=== PATIENT | female | born 1975 | race Caucasian/White ===

== ENCOUNTER → 2018-01-18 18:32 | Outpatient (CLI) | payer OTHER, SELFPAY ==
[2018-01-18 18:33] LABS: Mucous, Urine 0 SEEN /hpf (<or=2+); Squamous Epithelial Cells - UA 0 SEEN /hpf (5-10)
[2018-01-18 18:44] LABS: Color, Urine Yellow (Yellow); Glucose, Dipstick Normal (Normal); Ketone-Dipstick Negative (Negative); Leukocyte Esterase-Dipstick 500 /ul (Negative); Nitrite-Dipstick Negative (Negative); Occult Blood-Urine 250 /ul (Negative); Protein-Dipstick 30 mg/dl (Negative); Urine Bilirubin Dipstick Negative (Negative); Urine Clarity Cloudy (Clear); Urine Urobilinogen Normal (Normal); Urine pH 6.5 (5.0 - 8.0)
[2018-01-18 19:00] LABS: Bacteria RARE /hpf (None Seen); Red Blood Cells-Urine 5-10 SEEN /hpf (0-5); White Blood Cells >100 SEEN /hpf (0-5)
== END ==
PROVIDERS: Visit Provider Physician Assistant Surgical
DX: J02.9 Acute pharyngitis, unspecified (principal); R30.0 Dysuria
CPT/HCPCS: 81001; 87077; 87086; 87088; 87186

== ENCOUNTER → 2018-03-06 12:27 | Outpatient (CLI) | payer OTHER, SELFPAY ==
--- NOTE | 2018-03-06 12:29 | BI_ITS ---
MAMMOGRAPHY - BILATERAL SCREENING REASON FOR EXAM: Female, 42 years old. Routine annual screening examination. PERTINENT HISTORY: Non-contributory. TECHNIQUE: Digital bilateral breast rodrigo (3D mammographic acquisition) in the CC and MLO projections. 2-D mediolateral oblique (MLO) and craniocaudad (CC) views of both breasts were obtained. CAD: Full Field Digital Mammography with Computer Added Detection was performed. COMPARISON: Comparison is made with prior study dated February 15, 2017. FINDINGS: Breast Composition: The breasts are heterogeneously dense, which may obscure small masses. There are no dominant masses or suspicious calcifications. No other significant abnormalities are identified. There has been no significant change since the prior study. BI/SCREENING MAMM (CAD), BILAT IMPRESSION: Stable bilateral screening mammogram. Yearly follow-up mammogram recommended. (A) ASSESSMENT CATEGORY: BIRADS Category 1: Negative. A letter regarding these results will be sent to the patient by the facility within 30 days. Approximately 10% of breast cancers are not detected by mammography. A normal mammogram should not delay biopsy of a clinically suspicious abnormality. [id number] Electronically Signed: Gerson Kumar MD at 13:50 EDT Tel [phone], Service support ,
--- NOTE | 2018-03-06 12:29 | BI_ITS ---
MAMMOGRAPHY - BILATERAL SCREENING REASON FOR EXAM: Female, 42 years old. Routine annual screening examination. PERTINENT HISTORY: Non-contributory. TECHNIQUE: Digital bilateral breast renaldo (3D mammographic acquisition) in the CC and MLO projections. 2-D mediolateral oblique (MLO) and craniocaudad (CC) views of both breasts were obtained. CAD: Full Field Digital Mammography with Computer Added Detection was performed. COMPARISON: Comparison is made with prior study dated February 15, 2017. FINDINGS: Breast Composition: The breasts are heterogeneously dense, which may obscure small masses. There are no dominant masses or suspicious calcifications. No other significant abnormalities are identified. There has been no significant change since the prior study. BI/Bilat Brst Screen Renaldo Add-On IMPRESSION: Stable bilateral screening mammogram. Yearly follow-up mammogram recommended. (A) ASSESSMENT CATEGORY: BIRADS Category 1: Negative. A letter regarding these results will be sent to the patient by the facility within 30 days. Approximately 10% of breast cancers are not detected by mammography. A normal mammogram should not delay biopsy of a clinically suspicious abnormality. [id number] Electronically Signed: Gerson Kumar MD at 13:50 EDT Tel [phone], Service support ,
== END ==
PROVIDERS: Referring Provider Obstetrics & Gynecology; Visit Provider Obstetrics & Gynecology
DX: Z12.31 Encounter for screening mammogram for malignant neoplasm of breast (principal)
CPT/HCPCS: 77063; 77067

== ENCOUNTER → 2019-03-26 15:21 | Outpatient (CLI) | payer OTHER, SELFPAY ==
[2018-08-09 07:43] VITALS: BMI 31.3
[2019-03-12 15:31] VITALS: BMI 31.3
--- NOTE | 2019-03-26 15:23 | BI_ITS ---
MAMMOGRAPHY - BILATERAL SCREENING REASON FOR EXAM: Female, 44 years old. Routine annual screening examination. PERTINENT HISTORY: Non-contributory. TECHNIQUE: Digital bilateral breast zoey (3D mammographic acquisition) in the CC and MLO projections. 2-D mediolateral oblique (MLO) and craniocaudad (CC) views of both breasts were obtained. CAD: Full Field Digital Mammography with Computer Added Detection was performed. COMPARISON: Comparison is made with prior study dated March 06, 2018 and February 15, 2017. FINDINGS: Breast Composition: The breasts are heterogeneously dense, which may obscure small masses. There are no dominant masses or suspicious calcifications. No other significant abnormalities are identified. There has been no significant change since the prior study. BI/SCREEN MAMM (CAD) W/ZOEY BILAT IMPRESSION: Stable bilateral screening mammogram. Yearly follow-up mammogram recommended. (A) ASSESSMENT CATEGORY: BIRADS Category 1: Negative. A letter regarding these results will be sent to the patient by the facility within 30 days. Approximately 10% of breast cancers are not detected by mammography. A normal mammogram should not delay biopsy of a clinically suspicious abnormality. [id number] Electronically Signed: Gerson Kumar, at 8:06 EST , Service support ,
== END ==
PROVIDERS: Family Provider Family Medicine; PCP Family Medicine; Referring Provider Nurse Practitioner Women's Health; Visit Provider Nurse Practitioner Women's Health
DX: Z12.31 Encounter for screening mammogram for malignant neoplasm of breast (principal)
CPT/HCPCS: 77063; 77067

== ENCOUNTER → 2020-03-17 16:50 | Outpatient (CLI) | payer OTHER, SELFPAY ==
[2020-03-17 15:37] VITALS: BMI 40.5
[2020-03-23 08:56] LABS: HPV APTIMA, High Risk Negative (Negative)
== END ==
PROVIDERS: PCP Family Medicine; Visit Provider Nurse Practitioner Women's Health
DX: Z12.4 Encounter for screening for malignant neoplasm of cervix (principal)
CPT/HCPCS: 87624; 88175; G0145

== ENCOUNTER → 2020-04-21 07:07 | Outpatient (CLI) | payer OTHER, SELFPAY ==
[2020-03-26 06:31] VITALS: BMI 40.7
--- NOTE | 2020-04-21 07:07 | BI_ITS ---
MAMMOGRAPHY - BILATERAL SCREENING REASON FOR EXAM: Female, 45 years old. Routine annual screening examination. PERTINENT HISTORY: Non-contributory. TECHNIQUE: Digital bilateral breast zoey (3D mammographic acquisition) in the CC and MLO projections. 2-D mediolateral oblique (MLO) and craniocaudad (CC) views of both breasts were obtained. CAD: Full Field Digital Mammography with Computer Added Detection was performed. COMPARISON: Comparison is made with prior study dated 03/26/2019 and 03/06/2018. FINDINGS: Breast Composition: The breasts are heterogeneously dense, which may obscure small masses. There are no dominant masses or suspicious calcifications. Stable benign-appearing axillary lymph nodes No other significant abnormalities are identified. There has been no significant change since the prior study. BI/SCREEN MAMM (CAD) W/ZOEY BILAT IMPRESSION: Stable bilateral screening mammogram. Yearly follow-up mammogram recommended. (A) ASSESSMENT CATEGORY: BIRADS Category 2: Benign. A letter regarding these results will be sent to the patient by the facility within 30 days. Approximately 10% of breast cancers are not detected by mammography. A normal mammogram should not delay biopsy of a clinically suspicious abnormality. [id number] Electronically Signed: Gerson Kumar, at 8:15 EST , Service support ,
== END ==
PROVIDERS: PCP Family Medicine; Referring Provider Nurse Practitioner Women's Health; Visit Provider Nurse Practitioner Women's Health
DX: Z12.31 Encounter for screening mammogram for malignant neoplasm of breast (principal)
CPT/HCPCS: 77063; 77067

== ENCOUNTER 2020-07-01 13:38 | Outpatient (RCR) | payer OTHER, SELFPAY ==
[2020-03-26 06:31] VITALS: BMI 40.7
== END 2020-07-01 23:59 ==
LOC: IMMUN 13:38
PROVIDERS: PCP Family Medicine; Visit Provider Family Medicine
DX: Z23 Encounter for immunization (principal)
CPT/HCPCS: 0011A; 0012A

== ENCOUNTER → 2021-04-25 08:57 | Outpatient (CLI) | payer OTHER, SELFPAY ==
--- NOTE | 2021-04-25 08:59 | BI_ITS ---
MAMMOGRAPHY - BILATERAL SCREENING REASON FOR EXAM: Female, 46 years old. Routine annual screening examination. PERTINENT HISTORY: Non-contributory. TECHNIQUE: Digital bilateral breast zoey (3D mammographic acquisition) in the CC and MLO projections. 2-D mediolateral oblique (MLO) and craniocaudad (CC) views of both breasts were obtained. CAD: Full Field Digital Mammography with Computer Added Detection was performed. COMPARISON: Comparison is made with prior study 04/21/2020 and 03/26/2019. FINDINGS: Breast Composition: There are scattered areas of fibroglandular density. There are no dominant masses or suspicious calcifications. Breast asymmetry with more breast tissue is seen in the retroareolar region of the right breast as compared to the left side. There has been no change. No other significant abnormalities are identified. There has been no significant change since the prior study. BI/SCRN MAMM (CAD)W/ZOEY BILAT IMPRESSION: Stable bilateral screening mammogram. Yearly follow-up mammogram recommended. (A) ASSESSMENT CATEGORY: BIRADS Category 2: Benign. A letter regarding these results will be sent to the patient by the facility within 30 days. Approximately 10% of breast cancers are not detected by mammography. A normal mammogram should not delay biopsy of a clinically suspicious abnormality. [id number] Electronically Signed: Gerson Kumar MD at 10:13 EST , Service support ,
== END ==
PROVIDERS: PCP Family Medicine; Visit Provider Nurse Practitioner Women's Health
DX: Z12.31 Encounter for screening mammogram for malignant neoplasm of breast (principal)
CPT/HCPCS: 77063; 77067

== ENCOUNTER → 2022-04-27 | Outpatient (CLI) | payer OTHER, SELFPAY ==
--- NOTE | 2022-04-27 08:29 | BI_ITS ---
MAMMOGRAPHY - BILATERAL SCREENING REASON FOR EXAM: Female, 47 years old. Routine annual screening examination. PERTINENT HISTORY: Non-contributory. TECHNIQUE: Digital bilateral breast zoey (3D mammographic acquisition) in the CC and MLO projections. 2-D mediolateral oblique (MLO) and craniocaudad (CC) views of both breasts were obtained. CAD: Full Field Digital Mammography with Computer Added Detection was performed. COMPARISON: Comparison is made with prior examination dated 04/25/2021 and 04/21/2020. FINDINGS: Breast Composition: There are scattered areas of fibroglandular density. There are no dominant masses or suspicious calcifications. Stable breast asymmetry were more breast tissue is seen in the retroareolar region of the right breast as compared to the left side. Stable small benign-appearing nodules in the upper outer aspect of the left breast most likely representing small lymph nodes. No other significant abnormalities are identified. There has been no significant change since the prior study. BI/SCRN MAMM (CAD)W/ZOEY BILAT IMPRESSION: Stable bilateral screening mammogram. Yearly follow-up mammogram recommended. (A) ASSESSMENT CATEGORY: BIRADS Category 2: Benign. A letter regarding these results will be sent to the patient by the facility within 30 days. Approximately 10% of breast cancers are not detected by mammography. A normal mammogram should not delay biopsy of a clinically suspicious abnormality. [id number] Electronically Signed: Gerson Kumar MD at 9:51 EST ,
== END | disposition home or self-care (01) ==
LOC: OPBI 08:28
PROVIDERS: PCP Family Medicine; Referring Provider Nurse Practitioner Women's Health; Visit Provider Nurse Practitioner Women's Health
DX: Z12.31 Encounter for screening mammogram for malignant neoplasm of breast (principal)
CPT/HCPCS: 77063; 77067

== ENCOUNTER → 2023-05-02 | Outpatient (CLI) | payer OTHER, SELFPAY ==
--- NOTE | 2023-05-02 07:53 | BI_ITS ---
MAMMOGRAPHY - BILATERAL SCREENING 3-D TOMOSYNTHESIS REASON FOR EXAM: Female, 48 years old. Routine annual screening examination. PERTINENT HISTORY: No significant family history. TECHNIQUE: 2-D mammograms and 3-D Tomosynthesis of the breast (s) were performed. CAD was performed. COMPARISON: April 27, 2022, April 25, 2021 FINDINGS: Stable predominantly fatty replaced breasts. Normal lymph nodes and scattered benign calcifications, unchanged. No dominant masses, suspicious microcalcifications, asymmetries, skin thickening or nipple retraction. BI/SCRN MAMM (CAD)W/ZOEY BILAT IMPRESSION: No interval change and no mammographic signs of malignancy. Routine yearly mammogram recommended. ASSESSMENT CATEGORY: BIRADS Category 2: Benign. A letter regarding these results will be sent to the patient by the facility within 30 days. FOLLOW UP RECOMMENDATION: Yearly follow up mammogram recommended. (A) Approximately 10% of breast cancers are not detected by mammography. A normal mammogram should not delay biopsy of a clinically suspicious abnormality. Electronically Signed: Miguel Aragon MD at 13:35 EST ,
== END | disposition home or self-care (01) ==
LOC: OPBI 07:52
PROVIDERS: PCP Family Medicine; Referring Provider Nurse Practitioner Women's Health; Visit Provider Nurse Practitioner Women's Health
DX: Z12.31 Encounter for screening mammogram for malignant neoplasm of breast (principal)
CPT/HCPCS: 77063; 77067

== ENCOUNTER → 2023-05-25 | Outpatient (CLI) | payer OTHER, SELFPAY ==
--- NOTE | 2023-05-25 09:13 | NM_ITS ---
CLINICAL: 48-year-old female with history of radiographic vertebral abnormalities. WHOLE BODY 99m Tc MDP RADIONUCLIDE BONE SCINTIGRAPHY COMPARISON: Plain film radiograph report lumbar spine 05/17/2023 FINDINGS: Following the intravenous administration of 26.8 mCi of 99m Tc MDP, whole body bone images reveal: 1. There is facilitated radiopharmaceutical concentration defined in the patellofemoral compartments both knees, the lateral femoral and medial tibial compartment of the right knee, the midfoot bilaterally, the fifth lumbar vertebra posteriorly on the left and right, the acromioclavicular compartments of both shoulders. 2. The remaining skeletal structures are scintigraphically unremarkable with normal-appearing renal images and urinary bladder activity identified. NM/Bone Scan Whole Body IMPRESSION: 1. The increase in tracer distribution defined in the bilateral shoulders, the fifth lumbar vertebra, knees bilaterally, the right-left midfoot is commensurate with degenerative arthrosis. 2. There is no definitive scintigraphic evidence of skeletal metastatic disease. Electronically Signed: Bhupinder Zamarripa DO at 15:25 EST ,
== END | disposition home or self-care (01) ==
LOC: NM 09:08
PROVIDERS: PCP Family Medicine; Referring Provider Orthopaedic Surgery Orthopaedic Surgery of the Spine; Visit Provider Orthopaedic Surgery Orthopaedic Surgery of the Spine
DX: M89.9 Disorder of bone, unspecified (principal)
CPT/HCPCS: 78306; A9503

== ENCOUNTER → 2023-06-01 | Outpatient (CLI) | payer OTHER, SELFPAY ==
--- OUTSIDE RECORDS SUMMARY | 2023-06-01 06:30 | XMS RPT_ITS | CCD ---
Author Name Unknown Address [address] [place] [address] Organization [facility] Care Team Providers Care Pathology Laboratory Director Name Role Phone Kiley Hernandez Unavailable Unavailable Deanna Fuentes MD Unavailable Lavon RAZA, Jenny Curran Unavailable Gaetano Alford Unavailable Unavailable Gaetano Alford Unavailable Unavailable MEENU MCMANUS Unavailable Unavailable KarLauro plummer Unavailable Unavailable Lauro Lakhani Unavailable Unavailable Deanna Fuentes MD Unavailable [facility] Sanders Primary Care Provider Unavailable Primary Care Provider Unavailabl nathan Lakhnai Sanders Primary Care Provider Kar Sanders Primary Care Provider Get Mejia MD Primary Care Provider Octavio Rodrigues DO Unavailable JESIKA, IFTEKHAR Attending Unavailable JESIKA, IFTEKHAR Referring Unavailable ELIAS, GET Primary Care Unavailable JESIKA, IFTEKHAR Admitting Unavailable JESIKA, IFTEKHAR Attending Unavailable JESIKA, IFTEKHAR Referring Unavailable ELIAS, GET Primary Care Unavailable JESIKA, IFTEKHAR Attending Unavailable ELIAS, GET Primary Care Unavailable Allergies Allergy Classification Reported Allergen(s) Allergy Type Date of Onset Reaction(s) Facility (7 sources) penicillin v drug allergy 01-11-20 17 [facility] (7 sources) sulfamethoxazole / trimethoprim drug allergy 01-11-20 17 [facility] (3 sources) Penicillins Propensity to adverse reactions to drug 04-07-20 15 [employer] Work Phone: (3 sources) Sulfonamides (Antibiotic) Propensity to adverse reactions to drug 04-07-20 15 [employer] Work Phone: (3 sources) Penicillins Propensity to adverse reactions 04-10-20 [facility] (3 sources) Pollen Propensity to adverse reactions 04-10-20 Runny nose [employer] (3 sources) redtop grass pollen extract Drug Allergy 04-10-20 Runny nose [employer] (3 sources) Sulfonamides (Antibiotic) Propensity to adverse reactions 04-10-20 [facility] Medications Current Medications Medication Drug Class(es) Dates Sig (Normalized) Sig (Original) [id number] 200 actuat albuterol 0.09 mg/actuat metered dose inhaler (5 sources) beta2-Adrenergic Agonist Start: 04-19-2023 albuterol 108 (90 Base) MCG/ACT inhaler 4 puff Completed/Discontinued Medications Medication Drug Class(es) Dates Sig (Normalized) Sig (Original) clindamycin 300 mg oral capsule (7 sources) Lincosamide Antibacterial Start: 01-10-2017 End: 01-20-2017 take 1 tablet by mouth four times daily CLINDAMYCIN HCL 300 MG CAPS One tablet by mouth four times daily CLINDAMYCIN HCL [id number] Jenny Doll LEVEL VIAL CURVATURE GAUGER nabumetone 750 mg oral tablet (10 sources) Nonsteroidal Anti-inflammatory Drug Start: 01-10-2017 End: 01-30-2017 NABUMETONE 750 MG TABS NABUMETONE [id number] Kiley Hernandez Problems Active Problems Problem Classification Problem Date Documented Date Episodic/Chronic Diabetes mellitus without complication (9 sources) Type 2 diabetes mellitus without complications; Translations: [Type 2 diabetes mellitus without complication] Onset: 01-30-2017 01-30-2017 Chronic Other circulatory disease (2 sources) Arteritis, unspecified; Translations: [Arteritis, unspecified] Onset: 01-05-2017 Chronic Other lower respiratory disease (8 sources) Interstitial lung disease; Translations: [Interstitial pulmonary disease, unspecified] Onset: 06-13-2021 Chronic Other lower respiratory disease (2 sources) Interstitial pulmonary disease, unspecified; Translations: [Interstitial pulmonary disease, unspecified (HCC)] Onset: 02-16-2022 Chronic Other lower respiratory disease (6 sources) Dyspnea on exertion; Translations: [Other forms of dyspnea] Onset: 04-19-2022 11-13-2022 Episodic Other lower respiratory disease (2 sources) Other forms of dyspnea; Translations: [Other forms of dyspnea] Onset: 04-19-2022 Episodic Other nervous system disorders (2 sources) Other inflammatory and immune myopathies, not elsewhere classified; Translations: [Oth inflammatory and immune myopathies, NEC] Onset: 02-21-2017 Chronic Other nutritional; endocrine; and metabolic disorders (5 sources) Severe obesity; Translations: [Morbid (severe) obesity due to excess calories] Onset: 06-13-2021 06-13-2021 Chronic Other nutritional; endocrine; and metabolic disorders (2 sources) Morbid (severe) obesity due to excess calories; Translations: [Morbid (severe) obesity due to excess calories (HCC)] Onset: 02-16-2022 Chronic Other nutritional; endocrine; and metabolic disorders (2 sources) Body mass index (BMI) 45.0-49.9, adult; Translations: [Body mass index (BMI) 45.0-49.9, adult (HCC)] Onset: 02-16-2022 Chronic Other screening for suspected conditions (not mental disorders or infectious disease) (8 sources) Decreased diffusion capacity of lung; Translations: [Abnormal results of pulmonary function studies] Onset: 11-04-2021 11-13-2022 Episodic Systemic lupus erythematosus and connective tissue disorders (12 sources) Polymyositis associated with autoimmune disease; Translations: [Polymyositis, organ involvement unspecified] Onset: 06-13-2021 Chronic Unclassified (1 source) Screening mammography ; Translations: [Encounter for screening mammogram for malignant neoplasm of breast] Onset: 01-30-2017 01-30-2017 Unclassified (1 source) Cervical smear biopsy taken ; Translations: [Encounter for screening for malignant neoplasm of cervix] Onset: 01-30-2017 01-30-2017 Unclassified (1 source) Gynecologic examination ; Translations: [Encounter for gynecological examination (general) (routine) without abnormal findings] Onset: 01-30-2017 01-30-2017 Past or Other Problems Problem Classification Problem Date Documented Da te Episodic/Chronic Allergic reactions (4 sources) Allergy status to sulfonamides status; Translations: [Allergy status to penicillin] Onset: 02-21-2017 Episodic Inflammatory diseases of female pelvic organs (10 sources) Abscess of labia; Translations: [Abscess of vulva] Onset: 01-10-2017 Resolved: 01-30-2017 01-30-2017 Episodic Other circulatory disease (2 sources) Personal history of transient ischemic attack (TIA), and cerebral infarction without residual deficits; Translations: [Prsnl hx of TIA (TIA), and cereb infrc w/o resid deficits] Onset: 02-21-2017 Episodic Other connective tissue disease (2 sources) Muscle weakness (generalized); Translations: [Muscle weakness (generalized)] Onset: 02-21-2017 Episodic Other connective tissue disease (6 sources) Interstitial myositis; 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, right thigh] Onset: 02-21-2017 02-21-2017 Episodic Other inflammatory condition of skin (2 sources) Erythema nodosum; Translations: [Erythema nodosum] Onset: 01-05-2017 Episodic Other non-traumatic joint disorders (2 sources) Pain in unspecified joint; Translations: [Pain in unspecified joint] Onset: 01-05-2017 Episodic Results Test Name Value Interpretation Reference Range Facil ity Vital Signs Date Time Vital Sign Value Performing Clinician Facility 11-13-2022 13:26-0400 Body height 169.5 cm Ruth Canchola MD Work Phone: [facility] [employer] 11-13-2022 13:26-0400 Body mass index (BMI) [Ratio] 48.89 kg/m2 Ruth Canchola MD Work Phone: [facility] 11-13-2022 13:26-0400 Body temperature 96.91 [degF] Ruth Canchola MD Work Phone: [facility] 11-13-2022 13:26-0400 Body weight 140.52 kg Ruth Canchola MD Work Phone: [facility] [employer] 11-13-2022 13:26-0400 Diastolic blood pressure 92 mm[Hg] Ruth Canchola MD Work Phone: [facility] 11-13-2022 13:26-0400 Heart rate 97 /min Ruth Canchola MD Work Phone: [facility] 11-13-2022 13:26-0400 SaO2% (BldA) [Mass fraction] 96 % Ruth Canchola MD Work Phone: [facility] 11-13-2022 13:26-0400 Systolic blood pressure 130 mm[Hg] Ruth Canchola MD Work Phone: [facility] [employer] 09-01-2021 12:17-0400 Heart rate 75 /min Ruth Canchola MD Work Phone: [facility] 09-01-2021 12:17-0400 Respiratory rate 18 /min Ruth Canchola MD Work Phone: [facility] 09-01-2021 12:17-0400 SaO2% (BldA) [Mass fraction] 99 % Ruth Canchola MD Work Phone: [facility] 11-07-2019 14:25-0400 BMI (Body Mass Index) 39.16 kg/m2 [facility] [place] 11-07-2019 14:25-0400 Body weight 113.4 kg [facility] [place] 11-07-2019 14:25-0400 Height 170.2 cm [place], [place] 11-07-2019 14:25-0400 Pulse (Heart Rate) 83 /min [facility] [place] 11-07-2019 14:25-0400 Pulse Oximetry 99 % [facility] , [place] 11-07-2019 14:25-0400 Respiratory Rate 18 /min [place], [place] 05-02-2019 09:41-0500 Body mass index (BMI) [Ratio] 36.02 kg/m2 Erickson Carpenter MD Work Phone: [facility] Work Phone: 05-02-2019 09:41-0500 Body weight 104.33 kg Erickson Carpenter MD Work Phone: [facility] Work Phone: 01-30-2017 15:36-0400 BMI (Body Mass Index) 33.86 kg/m2 Kiley Hernandez [facility] 01-30-2017 15:36-0400 Body Temperature 98.8 [degF] Kiley Hernandez [facility] 01-30-2017 15:36-0400 BP Diastolic 77 mm[Hg] Kiley Hernandez [facility] 01-30-2017 15:36-0400 BP Systolic 119 mm[Hg] Kiley Hernandez [facility] 01-30-2017 15:36-0400 Height 170.18 cm Kiley Hernandez [facility] 01-30-2017 15:36-0400 Pulse (Heart Rate) 83 /min [facility] Hernandez [facility] 01-30-2017 15:36-0400 Respiratory Rate 16 /min Kiley Hernandez [facility] 01-30-2017 15:36-0400 Weight 98.07 kg Kiley Hernandez [facility] 01-10-2017 15:21-0400 BMI (Body Mass Index) 32.73 kg/m2 Jenny Doll NP [facility] 01-10-2017 15:21-0400 Body Temperature 97.8 [degF] Jenny Doll LEVEL VIAL CURVATURE GAUGER [facility] 01-10-2017 15:21-0400 Body Temperature 97.81 [degF] Jenny Doll LEVEL VIAL CURVATURE GAUGER [facility] 01-10-2017 15:21-0400 BP Diastolic 92 mm[Hg] Jenny Doll LEVEL VIAL CURVATURE GAUGER [facility] 01-10-2017 15:21-0400 BP Systolic 145 mm[Hg] Jenny Doll LEVEL VIAL CURVATURE GAUGER [facility] 01-10-2017 15:21-0400 Height 170.18 cm Jenny Doll LEVEL VIAL CURVATURE GAUGER [facility] 01-10-2017 15:21-0400 Pulse (Heart Rate) 82 /min Jenny Doll NP [facility] 01-10-2017 15:21-0400 Respiratory Rate 17 /min Jenny Doll [facility] 01-10-2017 15:21-0400 Weight 94.8 kg Jenny Lavon LEV[facility]IAL [facility]ATURE [facility] Encounters Encounter Date Encounter Type Care Provider Facility Start: 04-19-2023 End: 04-20-2023 ambulatory RUTH CANCHOLA [facility] Start: 04-19-2023 End: 04-19-2023 Subsequent hospital visit by physician Ruth Canchola MD Work Phone: [facility] Pulm Function Test Procedures Date Procedure Procedure Detail Performing Clinician Start: 04-19-2023 Brncdilat rspse spmtry pre&post-brncdilat alejandra Canchola MD Work Phone: Start: 04-27-2022 Mammography Ruth Canchola MD Work Phone: Start: 09-01-2021 Brncdilat rspse spmtry pre&post-brncdilat alejandra Canchola MD Work Phone: Start: 05-04-2020 EXTERNAL IMAGING External Provider Start: 03-24-2020 EXTERNAL LAB External Provider Start: 11-07-2019 Lung differential function Erickson Carpenter Work Phone: Start: 05-02-2019 SPIROMETRY WITH DIFFUSION CAPACITY Erickson Carpenter MD Work Phone: Start: 01-30-2017 Cervical smear biopsy taken Pap smear Jenny Doll [employer]EV[employer] GAU[employer] Start: 01-30-2017 Gynecologic examination Routine gynecological examination Jenny Doll [employer]EV[employer] Start: 01-30-2017 End: 02-08-2017 Mammogram, screening Jenny Doll [employer] Work Phone: Start: 01-30-2017 Screening mammography Mammogram yearly screening Jenny Doll LEV[employer]IAL [employer]VATURE GAUGER Plan of Treatment Date Care Activity Detail Author Start: 2035 RSV Immunization age d 60 or older (1 - 1-dose 60+ series) RSV Immunization aged 60 or older (1 - 1-dose 60+ series) [facility] Start: 12-09-2024 DTaP/Tdap/Td vaccine (2 - Td or Tdap) DTaP/Tdap/Td vaccine (2 - Td or Tdap) [facility] Start: 04-27-2023 Screening for malign ant neoplasm of breast Mammogram [facility] Start: 04-19-2023 End: 11-14-2023 Complete PFT pre and post bronchodilator with FENO [facility] Work Phone: Immunizations Immunization Date Immunization Notes Care Provider Fa cili 02-26-2022 influenza virus vaccine, unspecified formulation Ruth Canchola MD Work Phone: [facility] 03-17-2021 COVID-19, Moderna, Primary or Immunocompromised, PF, 100mcg/0.5mL Ruth Canchola MD Work Phone: [facility] Work Phone: 07-29-2020 COVID-19, Moderna, Primary or Immunocompromised, PF, 100mcg/0.5mL Ruth Canchola MD Work Phone: [facility] Work Phone: 07-01-2020 COVID-19, Moderna, Primary or Immunocompromised, PF, 100mcg/0.5mL Ruth Canchola MD Work Phone: [facility] Payers Date Payer Category Payer Unknown 2016 Unknown [employer] [address] xxxxxxxxxxxx 2016-Present [phone] [address] [place] [address] xxxxxxxxxxxx [id number] 2016 Unknown [id number] Social History Date Type Detail Facility Start: 02-20-2017 End: 05-02-2019 Tobacco smoking status NHIS Never smoker [facility] Work Phone: Start: 05-02-2019 End: 11-13-2022 Alcohol intake Current non-drinker of alcohol (finding) [employer] Phone: Start: 1975 Sex Assigned At Not on file [facility] [employer] Work Phone: Start: 02-20-2017 Tobacco use and exposure Smoke less tobacco non-user [facility][x+1] Phone: Start: 04-25-2022 End: 11-13-2022 History of Social function [facility] Start: 04-25-2022 End: 11-13-2022 Tobacco use panel [facility] Start: 1975 Sex Assigned At Female S [facility] Start: 02-23-2022 Gender identity Identifies as female gender (finding) [facility] Start: 04-04-2022 Sexual orientation Heterosexual (fin ding) [facility] Start: 11-03-2022 End: 11-13-2022 Exposure to SARS-CoV-2 (event) Not sure [facility] History of Present illness Narrative 11-13-2022 Ruth Canchola MD - 11/13/2022 1:40 PM EDT Note Date & Type Note Facility 11-13-2022 History of Presen t illness Narrative Images from the original note were not included. [facility] [address] [place] [id number] PH: [phone] Visit type: An Established patient 11/13/2022 CHIEF COMPLAINT/REASON FOR REFERRAL: Chief Complaint Patient presents with Follow-up 6-MONTH APPT LUNG DISEASE History of Present Illness Rody Lopez is a 47 y.o. 1975 follow-up for pulmonary fibrosis history on exertion Patient is doing fairly well her shortness of breath is a stable. Short of breath with carrying heavy objects or climbing stairs Mild swelling of the leg off and on which get better in the morning Denies fever chills Rigor Oxygen saturation 96% on room air Blood pressure is stable patient is on CellCept For polymyositis being followed by rheumatology at [facility] MMR Dyspnea Scale: Grade Description of Breathlessness 0 I only get breathless with strenuous exercise. 1 I get short of breath when hurrying on level ground or walking up a slight hill. 2 On level ground, I walk slower than people of the same age because of breathlessness, or have to stop for breath when walking at my own pace. 3 I stop for breath after walking about 100 yards or after a few minutes on level ground. 4 I am too breathless to leave the house or I am breathless when dressing. PastMedical History Past Medical History: Diagnosis Date Arthritis Asthma Muscle weakness Myositis Stroke (cerebrum) (HCC) TIA DT BCP TIA (transient ischemic attack) Type 2 diabetes mellitus without complication (CMS/HCC) (HCC) diet controlled Past Surgical History Past Surgical History: Procedure Laterality Date ANKLE ARTHROSCOPY (HISTORICAL) CARPAL TUNNEL RELEASE Bilateral 12/19/2016 jan 26 left side/right was 12/19 OTHER SURGICAL HISTORY Right thigh muscle biopsy WISDOM TOOTH EXTRACTION Allergies Allergies Allergen Reactions Grass Extracts [Gramineae Pollens] Runny nose Sinus symptoms Pcn [Penicillins] Hives Pollen Extract Runny nose Sinus symptoms Sulfa Antibiotics Hives Medications Current Outpatient Medications: albuterol 108 (90 Base) MCG/ACT inhaler, Inhale 2 puffs every 6 hours as needed for wheezing., Disp: 18 g, Rfl: 2 biotin 1000 MCG tablet, Every 24 hours., Disp: , Rfl: fish oil-omega-3 fatty acids 1000 MG capsule, Take by mouth., Disp: , Rfl: lisinopril 10 MG tablet, TAKE 1 TABLET BY MOUTH EVERY DAY FOR 30 DAYS, Disp: , Rfl: methylPREDNISolone (Medrol Dospak) 4 MG tablets, TAKE 6 TABLETS ON DAY 1 DIRECTED ON PACKAGE AND DECREASE BY 1 TAB EACH DAY FOR A TOTAL OF 6 DAYS, Disp: , Rfl: multivitamin with minerals (Centrum) 9-200 mg-mcg tablet split tablet, Every 24 hours., Disp: , Rfl: mycophenolate (Cellcept) 500 MG tablet, , Disp: , Rfl: omega-3 (Fish Oil) 1000 MG capsule, Every 24 hours., Disp: , Rfl: valsartan-hydroCHLOROthiazide (Diovan-HCT) 160-12.5 MG tablet, Take 0.5 tablets by mouth in the morning., Disp: , Rfl: VITAMIN D, CHOLECALCIFEROL, PO, Take by mouth., Disp: , Rfl: beta carotene (Vitamin A) 15 MG/ML injection, Every 24 hours., Disp: , Rfl: fluticasone (Flonase) 50 MCG/ACT nasal spray, Administer 2 sprays into affected nostril(s) in the morning., Disp: , Rfl: levocetirizine (Xyzal) 5 MG tablet, Take by mouth., Disp: , Rfl: predniSONE (Deltasone) 10 MG tablet, 4 TABLETS DAILY FOR 3 DAYS, THEN 3 DAILY FOR 3 DAYS, THEN 2 DAILY FOR 3 DAYS, THEN 1 FOR 3 DAYS, Disp: , Rfl: triamcinolone (Kenalog) 0.1 % cream, USE ONE APPLICATION TOPICALLY TWICE A DAY NEEDED FOR CONTACT DERMATITIS, Disp: , Rfl: valACYclovir (Valtrex) 500 MG tablet, TAKE 4 TABLETS AT THE START OF SYMPTOMS AND FOUR TABLETS 12 HOURS LATER, Disp: , Rfl: Social History Social History Tobacco Use Smoking status: Never Smokeless tobacco: Never Substance Use Topics Alcohol use: No FamilyHistory Family History Problem Relation Name Age of Onset Kidney disease Mother Cancer Mother Other (9[address]) Mother Review of Systems Review of Systems Constitutional: Negative. HENT: Negative. Eyes: Negative. Respiratory: Negative. Cardiovascular: Negative. Gastrointestinal: Negative. Endocrine: Negative. Genitourinary: Negative. Musculoskeletal: Negative. Skin: Negative. Allergic/Immunologic: Negative. Neurological: Negative. Psychiatric/Behavioral: Negative. All other systems reviewed and are negative. Physical Exam Vitals: 11/13/22 1326 BP: (!) 130/92 Pulse: 97 Temp: 36.1 C (96.9 F) TempSrc: Temporal SpO2: 96% Weight: (!) 309 lb 12.8 oz (141 kg) Height: 5' 6.75 (1.695 m) Physical Exam Vitals reviewed. Constitutional: General: She is not in acute distress. Appearance: She is obese. HENT: Head: Normocephalic. Right Ear: Tympanic membrane, ear canal and external ear normal. There is no impacted cerumen. Left Ear: Ear canal and external ear normal. There is no impacted cerumen. Nose: Nose normal. No congestion or rhinorrhea. Mouth/Throat: Mouth: Mucous membranes are moist. Pharynx: Oropharynx is clear. No oropharyngeal exudate or posterior oropharyngeal erythema. Eyes: General: Right eye: No discharge. Left eye: No discharge. Extraocular Movements: Extraocular movements intact. Conjunctiva/sclera: Conjunctivae normal. Pupils: Pupils are equal, round, and reactive to light. Neck: Vascular: No carotid bruit. Cardiovascular: Rate and Rhythm: Normal rate and regular rhythm. Pulses: Normal pulses. Heart sounds: Normal heart sounds. No murmur heard. No friction rub. No gallop. Pulmonary: Effort: Pulmonary effort is normal. No respiratory distress. Breath sounds: No stridor. No wheezing, rhonchi or rales. Chest: Chest wall: No tenderness. Abdominal: General: Bowel sounds are normal. Palpations: Abdomen is soft. Tenderness: There is no abdominal tenderness. Musculoskeletal: General: No swelling. Cervical back: No rigidity or tenderness. Right lower leg: No edema. Left lower leg: No edema. Lymphadenopathy: Cervical: No cervical adenopathy. Skin: General: Skin is warm. Findings: No rash. Neurological: General: No focal deficit present. Mental Status: She is alert and oriented to person, place, and time. Motor: No weakness. Psychiatric: Mood and Affect: Mood normal. Behavior: Behavior normal. Thought Content: Thought content normal. Data Reviewed and Summarized LABS and Studies: Available studies were personally reviewed. Salient findings summarized in HPI & A/P Imaging: Available studies were personally reviewed. Salient findings summarized in HPI & A/P PFT's: Pulmonary Functions Testing Results: Last PFT reviewed with the patient Normal spirometry Mildly decreased diffusing capacity 78 percentile actually is better than the last 1 on which she has a 75 percentile of diffusing capacity Lung volumes within normal limits Assessment and Plan 1. TRIPP (dyspnea on exertion) Stable Gets short winded on carrying heavy object and climbing stairs - Complete PFT pre and post bronchodilator with FENO; Future - CT chest wo IV contrast; Future 2. Interstitial lung disease (HCC) Mild pulmonary fibrosis with mild bibasilar traction bronchiectasis Repeat CAT scan by the end of this year - Complete PFT pre and post bronchodilator with FENO; Future - CT chest wo IV contrast; Future 3. Decreased diffusion capacity of lung Stable 78 percentile Follow-up complete PFT in 4 to 5 months - Complete PFT pre and post bronchodilator with FENO; Future - CT chest wo IV contrast; Future 4. Class 3 severe obesity due to excess calories with body mass index (BMI) of 45.0 to 49.9 in adult, unspecified whether serious comorbidity present (HCC) Advised to lose weight as much as possible that should help her overall status 5. Polymyositis associated with autoimmune disease (HCC) Being followed [place] clinic rheumatology associate Currently on CellCept - Complete PFT pre and post bronchodilator with FENO; Future - CT chest wo IV contrast; Future Ruth Canchola MD Pulmonary, Critical Care, & Sleep Medicine Portions of the information within this encounter were entered using an electronic dictation system. Best attempts were made to edit/proofread the information prior to note completion. Despite the review of information, some errors may remain. If there are questions related to the information contained within the note please contact the documented in this encounter [facility] Instructions 11-13-2022 Patient Instructions Note Date & Type Note Facility 11-13-2022 Instructions Nella Freeman - 11/13/2022 1:40 PM EDT YOUR APPOINTMENT TODAY WAS WITH THE [facility], COPD CLINIC, PULMONARY AND SLEEP MEDICINE OFFICE. PLEASE CALL OUR OFFICE AT [phone] for our [place] office location or [phone] for our [place] location, IF YOU HAVE NOT RECEIVED YOUR TEST RESULTS 7 DAYS AFTER TESTING IS COMPLETED. PLEASE REMEMBER TO REQUEST REFILLS AT YOUR OFFICE VISITS. PHONE/FAX REQUESTS REQUIRE 48-72 HOURS FOR RESPONSE. A FRIENDLY REMINDER COPAYS ARE DUE AT TIME OF SERVICE. THANK YOU. Our Patients Are Important! We want to improve and you can help. After your visit we want you to feel: Listened to, Respected and have your health care explained. You may receive a survey asking you about your visit. Please complete the survey. We will use your feedback to make improvements. COVID-19 VACCINATION INFORMATION: PH. [phone] [email or web address].[email or web address] [facility] Central Scheduling [phone] [facility] Sleep Scheduling [phone] documented in this encounter [facility] [employer] Evaluation note Note Date & Type Note Facility documented in this encounter [facility] [employer] Work Phone: Evaluation note Note Date & Type Note Facility documented in this encounter [facility] Evaluation note Note Date & Type Note Facility documented in this encounter [facility] Summary Purpose Family History No Family History Records FoundNo Family History Records FoundNo Family History Records Found Advance Directives No Advanced Directives Records FoundDocuments on File Type Date Recorded Patient Official Court Interpreter Expl anation Advance Directives and Living Will Power of Building Services Engineer Latest Code Status on File Code Status Date Activated Date Inactivated Comments Full Code 02/21/2017 10:26 AM 02/21/2017 4:54 PM Documents on File Type Date Recorded Patient Official Court Interpreter Expl anation ACP-Advance Directive ACP-Power of Building Services Engineer Latest Code Status on File Code Status Date Activated Date Inactivated Comments Full Code 02/21/2017 10:26 AM 02/21/2017 4:54 PM Reason for Referral Specialty Diagnoses / Procedures Referred By Rachele t Referred To Contact Radiology Diagnoses Interstitial lung disease (HCC) Polymyositis associated with autoimmune disease (HCC) Procedures CT CHEST WO CONTRAST Ruth Canchola MD [address] [place] [address] Referral ID Status Reason Start Date Expiration Date Visits Re quested Visits Authorized [id number] Open 07/20/2021 09/03/2021 1 1 Specialty Diagnoses / Procedures Referred By Conthenrietta t Referred To Contact Radiology Diagnoses TRIPP (dyspnea on exertion) Interstitial lung disease (HCC) Decreased diffusion capacity of lung Polymyositis associated with autoimmune disease (HCC) Procedures CT chest wo IV contrast Ruth Canchola MD [address] [place] [id number] Referral ID Status Reason Start Date Expiration Date V isits Requested Visits Authorized [id number] Pending Review 11/13/2022 05/12/2023 1 1 Specialty Diagnoses / Procedures Referred By Contac t Referred To Contact Pulmonology Diagnoses TRIPP (dyspnea on exertion) Interstitial lung disease (HCC) Decreased diffusion capacity of lung Polymyositis associated with autoimmune disease (HCC) Procedures Complete PFT pre and post bronchodilator with FENO Ruth Canchola MD [address] [place] [phone] Referral ID Status Reason Start Date Expiration Date V isits Requested Visits Authorized [id number] Authorized 11/13/2022 05/12/2023 1 1 Referral ID Status Reason Start Date Expiration Date Visits Re quested Visits Authorized [id number] Closed 11/13/2022 05/12/2023 1 1 Referral ID Status Reason Start Date Expiration Date Visits Re quested Visits Authorized [id number] Closed 03/28/2023 05/12/2023 1 1 Additional Source Comments INFORMATION SOURCE (unrecogn ized section and content) DATE CREATED AUTHOR AUTHOR'S ORGANIZ ATION 11/05/2021 [facility] DATE CREATED AUTHOR AUTHOR'S ORGANIZ ATION 04/24/2023 [facility] Source Comments (unrecognize d section and content) In the event this informatio n is protected by the Federal Confidentiality of Alcohol and Drug Abuse Patient Records regulations: The Federal rules restrict any use of the information to criminally investigate or prosecute any alcohol or drug abuse patient.[facility], IncIn the event this information is protected by the Federal Confidentiality of Alcohol and Drug Abuse Patient Records regulations: The Federal rules restrict any use of the information to criminally investigate or prosecute any alcohol or drug abuse patient.[facility] Care Teams (unrecognized sec tion and content) Pathology Laboratory Director Relationship Specialty Start Date End Date Get Mejia MD [address] [place] [phone] PCP - General Family Medicine 04/19/22 Octavio Rodrigues DO [address] [place] [address] Consulting Physician Rheumatology 05/18/22 Pathology Laboratory Director Relationship Specialty Start Date End Date Get Mejia MD [address] [place] [phone] PCP - General Family Medicine 04/19/22 Octavio Rodrigues DO [address] [facility] [place] [address] Consulting Physician Rheumatology 05/18/22 Pathology Laboratory Director Relationship Specialty Start Date End Date Get Mejia MD [address] [place] [phone] PCP - General [facility] Medicine 04/19/22 Octavio Rodrigues DO [address] [place] [address] Consulting Physician Rheumatology 05/18/22 Reason for Visit (unrecogniz ed section and content) Specialty Diagnoses / Procedures Referred By Rachele solorzano Referred To Contact Pulmonology Diagnoses TRIPP (dyspnea on exertion) Interstitial lung disease (HCC) Decreased diffusion capacity of lung Polymyositis associated with autoimmune disease (HCC) Procedures Complete PFT pre and post bronchodilator with Ruth Vasquez MD [address] [place] [phone] Referral ID Status Reason Start Date Expiration Date Visits Re quested Visits Authorized [id number] Closed 11/13/2022 05/12/2023 1 1 Specialty Diagnoses / Procedures Referred By Rachele solorzano Referred To Contact Radiology Diagnoses TRIPP (dyspnea on exertion) Interstitial lung disease (HCC) Decreased diffusion capacity of lung Polymyositis associated with autoimmune disease (HCC) Procedures CT chest wo IV contrast Ruth Canchola MD [address] [place] [address] Referral ID Status Reason Start Date Expiration Date Visits Re quested Visits Authorized [id number] Closed 03/28/2023 05/12/2023 1 1 FOR RECORDS PERTAINING TO PATIENTS WHO ARE OR HAVE BEEN ENROLLED IN A CHEMICAL DEPENDENCY/SUBSTANCEABUSE PROGRAM, SOME INFORMATION MAY BE OMITTED. This clinical summary was aggregated from multiple sources. Caution should be exercised in using it in the provision of clinical care. This summary normalizes information from multiple sources, and as a consequence, information in this document may materially change the coding, format and clinical context of patient data. In addition, data may be omitted in some cases. CLINICAL DECISIONS SHOULD BE BASED ON THE PRIMARY CLINICAL RECORDS. [employer] [facility]. provides no warranty or guarantee of the accuracy or completeness of information in this document.
--- NOTE | 2023-06-01 06:32 | MRI_ITS ---
HISTORY: BACK PAIN INTO R LEG TECHNIQUE: Multiplanar and multisequence MR images of the lumbar spine were obtained without intravenous contrast. 147 images. COMPARISON: NM 05/25/2023, XR 05/17/2023. FINDINGS: VERTEBRAE: Vertebral body heights maintained. Degenerative bone marrow endplate changes of L4-5. Mild degenerative endplate changes of L3-4 and L5-S1. ALIGNMENT: No anterior or posterior subluxation. CONUS: Normal morphology and position of the conus medullaris at L1. INTERVERTEBRAL DISCS: T11-T12, T12-L1: No significant posterior disc protrusion, central canal stenosis, or foraminal narrowing based the sagittal images. L1-2: No significant posterior disc protrusion, central canal stenosis, or foraminal narrowing. L2-3: Minimal disc bulge with facet arthropathy resulting in minimal bilateral foraminal narrowing. No significant central canal stenosis. L3-4: Mild disc bulge with facet arthropathy superimposed on a developmentally narrow spinal canal resulting in mild central canal stenosis and bilateral foraminal narrowing. L4-5: 7 x 8 x 13 mm right paracentral disc extrusion with inferior migration into the right lateral recess with facet arthropathy resulting in severe central canal stenosis, right L5 nerve root impingement, and moderate bilateral foraminal narrowing with bilateral L4 nerve root abutment. L5-S1: Facet arthritis with trace effusions. No significant posterior disc protrusion, central canal stenosis, or foraminal narrowing. SOFT TISSUES: Mild posterior subcutaneous edema. MRI/Spine Lumbar (Routine) IMPRESSION: Right paracentral disc extrusion with inferior migration at L4-5 resulting in severe spinal canal stenosis, right nerve root impingement, and moderate bilateral foraminal narrowing with bilateral nerve root abutment. Mild disc bulge of L3-4 superimposed on a developmentally narrow spinal canal resulting in mild spinal canal stenosis and bilateral foraminal narrowing. Electronically Signed: Lula Cristobal MD at 9:09 EST ,
== END | disposition home or self-care (01) ==
PROVIDERS: PCP Family Medicine; Referring Provider Orthopaedic Surgery Orthopaedic Surgery of the Spine; Visit Provider Orthopaedic Surgery Orthopaedic Surgery of the Spine
DX: M54.16 Radiculopathy, lumbar region (principal); M43.16 Spondylolisthesis, lumbar region
CPT/HCPCS: 72148

== ENCOUNTER → 2024-05-05 | Outpatient (CLI) | payer OTHER, SELFPAY ==
--- NOTE | 2024-05-05 10:22 | BI_ITS ---
MAMMOGRAPHY - BILATERAL SCREENING 3-D TOMOSYNTHESIS REASON FOR EXAM: Female, 49 years old. Screening for breast cancer PERTINENT HISTORY: No significant family history. TECHNIQUE: 2-D mammograms and 3-D Tomosynthesis of the breast (s) were performed. CAD was performed. COMPARISON: 05/02/2023 FINDINGS: The breast composition is composed of scattered fibroglandular density. Scattered benign calcifications are seen. No dense spiculated masses or suspicious microcalcifications are identified. No architectural distortion is identified. There is no skin thickening or retraction. There has been no significant change since the prior study. BI/SCRN MAMM (CAD)W/ZOEY BILAT IMPRESSION: No mammographic signs of malignancy. Routine yearly mammograms recommended. ASSESSMENT CATEGORY: BIRADS Category 1: Negative. A letter regarding these results will be sent to the patient by the facility within 30 days. FOLLOW UP RECOMMENDATION: Yearly follow up mammogram recommended. (A) Approximately 10% of breast cancers are not detected by mammography. A normal mammogram should not delay biopsy of a clinically suspicious abnormality. Electronically Signed: Bhupinder Her MD at 20:39 EST ,
== END | disposition home or self-care (01) ==
LOC: OPBI 10:15
PROVIDERS: PCP Family Medicine; Referring Provider Nurse Practitioner Women's Health; Visit Provider Nurse Practitioner Women's Health
DX: Z12.31 Encounter for screening mammogram for malignant neoplasm of breast (principal)
CPT/HCPCS: 77063; 77067

== ENCOUNTER → 2025-04-13 | Outpatient (CLI) | payer OTHER, SELFPAY ==
[2025-04-16 10:08] LABS: HPV APTIMA, High Risk Negative (Negative)
== END | disposition home or self-care (01) ==
LOC: LABSPEC 16:23
PROVIDERS: PCP Family Medicine; Visit Provider Nurse Practitioner Women's Health
DX: Z12.4 Encounter for screening for malignant neoplasm of cervix (principal)
CPT/HCPCS: 87624; 88175; G0145

== ENCOUNTER → 2025-05-06 | Outpatient (CLI) | payer OTHER, SELFPAY ==
--- OUTSIDE RECORDS SUMMARY | 2025-05-06 07:33 | XMS RPT_ITS | CCD ---
Author Organization [facility] Care Team Providers Care Bisque Ware Dipper Name Role Phone MaryQueenieKiley Etelvina Unavailable Unavailable Deanna Fuentes MD Unavailable [phone] Lavon RAZA, Jenny S Unavailable Gaetano Alford Unavailable Unavailable Gaetano Alford Unavailable Unavailable MEENU MCMANUS [facility] KarLauro plummer Unavailable Unavailable Deanna Fuentes MD Unavailable [phone] [facility] [place] Primary Care Provider Unavailable Primary Care Provider Unavailabl e Kar [place] Primary Care Provider Kar DO, [place] Primary Care Provider Kar, [facility] Primary Care Provider Unavai lable Kar [facility] Referring Provider Unavailab kori Doll TECHNICAL MARKETING CONSULTANT, TECHNICAL MARKETING CONSULTANT-C Jenny Attending Provider Get eMjia MD Primary Care Provider Octavio Rodrigues DO Unavailable Jolie Linn Primary Care Provider Un available [facility] Provider Unava ilable Lavon TECHNICAL MARKETING CONSULTANT, TECHNICAL MARKETING CONSULTANT-C Jenny Attending Provider Dr. Get Mejia Primary Care Provider Dr. Get Mejia Referring Provider Dr. David Jay Attending Provider Dr. Saurabh Morales Attending Provider Rosmery Lund CNP Primary Care Provider Get Mejia MD Primary Care Provider [phone] Ravi PONCE Cornell Unavailable Jackie, Get Primary Care Unavailable Jackie, Get Referring Unavailable Jay, David Attending Unavailable Jackie, Get Primary Care Unavailable Lavon TECHNICAL MARKETING CONSULTANT, Jenny Attending Unavailable [place] TECHNICAL MARKETING CONSULTANT, Jenny Referring Unavailable Jay, David Referring Unavailable Jackie, Get Primary Care Unavailable Jay, David Attending Unavailable Jackie, Get Primary Care Unavailable Lavon TECHNICAL MARKETING CONSULTANT, Jenny Attending Unavailable Jolie Linn Referring Unavaila ble Get Mejia MD Primary Care Provider JESIKA, IFTEKHAR Attending Unavailable JESIKA, IFTEKHAR Referring Unavailable JACKIE, GET Primary Care Unavailable JESIKA, IFTEKHAR Attending Unavailable JESIKA, IFTEKHAR Referring Unavailable JACKIE, GET Primary Care Unavailable YAKELIN PHILLIPS Attending Unavailable JACKIE, GET Primary Care Unavailable Allergies Allergy Classification Reported Allergen(s) Allergy Type Date of Onset Reaction(s) Facility (7 sources) penicillin v drug allergy 01-11-20 17 [facility] (7 sources) sulfamethoxazole / trimethoprim drug allergy 01-11-20 17 [facility] (3 sources) Penicillins Propensity to adverse reactions to drug 04-07-20 15 [facility] Work Phone: (3 sources) Sulfonamides (Antibiotic) Propensity to adverse reactions to drug 04-07-20 15 [facility] Work Phone: (4 sources) Penicillins Allergy to substance 03-28-20 22 [facility] (4 sources) Sulfonamides (Antibiotic) Allergy to substance 03-28-[address] [facility] (12 sources) Penicillins Propensity to adverse reactions 04-10-20 22 [facility] (12 sources) Pollen Propensity to adverse reactions 04-10-20 Runny nose [facility] (12 sources) redtop grass pollen extract Drug Allergy 04-10-20 22 Runny nose [facility] (12 sources) Sulfonamides (Antibiotic) Propensity to adverse reactions 04-10-20 Hives [facility] (1 source) Penicillins Drug allergy (disorder) 04-08-20 [facility] (1 source) Sulfonamides (Antibiotic) Drug allergy (disorder) 04-08-20 [facility] Medications Current Medications Medication Drug Class(es) Dates Sig (Normalized) Sig (Original) [id number] 200 actuat albuterol 0.09 mg/actuat metered dose inhaler (20 sources) beta2-Adrenergic Agonist Start: 04-24-2024 take 4 puff(s) by inhalation once 4 puff, Inhalation, Once, On [place] 04/24/24 at 1415, For 1 dose Start: 07-18-2023 take 2 puff(s) by in halation every six hours as needed for wheezing albuterol 108 (90 Base) MCG/ACT inhaler Indications: TRIPP (dyspnea on exertion) Inhale 2 puffs every 6 hours as needed for wheezing. 07/18/2023 Active Start: 04-19-2023 albuterol 108 (90 Base) MCG/ACT inhaler 4 puff Start: 04-19-2022 End: 07-18-2023 take 2 puff(s) by inhalation every six hours as needed for wheezing albuterol 108 (90 Base) MCG/ACT inhaler Indications: TRIPP (dyspnea on exertion) Inhale 2 puffs every 6 hours as needed for wheezing. 18 g 2 04/19/2022 07/18/2023 Discontinued (Reorder) Start: 09-01-2021 End: 09-01-2021 albuterol sulfate HFA 108 (9 0 Base) MCG/ACT inhaler 4 puff Start: 03-17-2020 take 1 puff(s) by in halation every six hours Albuterol Sulfate (Proair Hfa) 90 mcg/actuation HFA aerosol inhaler Active 2 PUFF INHALATION EVERY 6 HOURS March 17, 2020 12:00am cholecalciferol 0.05 mg oral capsule (4 sources) Vitamin D Start: 03-21-2021 take 50 ug by mouth once daily Cholecalciferol (Vitamin D3) Active 50 MCG PO DAILY March 21, 2021 12:00am cyclobenzaprine hydrochloride 5 mg oral tablet (7 sources) Muscle Relaxant Start: 10-31-2023 cyclobenzaprine (Flexeril) 5 MG tablet Take 5 mg by mouth. 10/31/2023 Active docosahexaenoic acid 120 mg / eicosapentaenoic acid 180 mg oral capsule (20 sources) fish oil-omega-3 fatty acids 1000 MG capsule Take by mouth. Active omega-3 (Fish Oi l) 1000 MG capsule Every 24 hours. Active fluticasone propionate 0.05 mg/actuat metered dose nasal spray (11 sources) Corticosteroid Start: 04-07-2015 take 2 spray(s) nasal route in the morning fluticasone (Flonase) 50 MCG/ACT nasal spray Administer 2 sprays into affected nostril(s) in the morning. 04/07/2015 Active folic acid 1 mg oral tablet (2 sources) take 1 tablet by mouth once daily folic acid (FOLVITE) 1 MG tablet Take 1 mg by mouth daily 0 Active gabapentin 300 mg oral capsule (7 sources) Anti-epileptic Agent Start: 08-12-2023 gabapentin (Neurontin) 300 MG capsule Take 300 mg by mouth. 08/12/2023 Active hydroCHLOROthiazide 12.5 mg oral tablet (10 sources) Thiazide Diuretic Start: 01-11-2024 hydroCHLOROthiazide 12.5 MG tablet Take 12.5 mg by mouth. 01/11/2024 Active Start: 04-03-2023 take 12.5 mg by mout h once daily Hydrochlorothiazide Active 12.5 MG PO DAILY April 03, 2023 12:00am hydroCHLOROthiazide 12.5 mg / valsartan 160 mg oral tablet (11 sources) Thiazide Diuretic, Angiotensin 2 Receptor Jesika take 0.5 tablet by mouth in the morning valsartan-hydroCHLOROthiazide (Diovan-HCT) 160-12.5 MG tablet Take 0.5 tablets by mouth in the morning. Active levocetirizine dihydrochloride 5 mg oral tablet (11 sources) Histamine-1 Receptor Antagonist levocetirizine (Xyza l) 5 MG tablet Take by mouth. Active levoFLOXacin 500 mg oral tablet (2 sources) Quinolone Antimicrobial Sta rt: 7 take 1 tablet by mouth once daily levofloxacin (LEVAQUIN) 500 MG tablet Take 500 mg by mouth daily 0 02/16/2017 Active lisinopril 10 mg oral tablet (14 sources) Angiotensin Converting Enzyme Inhibitor Sta rt: 2 take 1 tablet by mouth once daily lisinopril 10 MG tablet TAKE 1 TABLET BY MOUTH EVERY DAY FOR 30 DAYS 03/23/2022 Active meloxicam 15 mg oral tablet (7 sources) Nonsteroidal Anti-inflammatory Drug Sta rt: 4 meloxicam (Mobic) 15 MG tabl et Take 15 mg by mouth. 09/12/2023 Active methotrexate 2.5 mg oral tablet (2 sources) Folate Analog Metabolic Inhibitor take 4 tablets by mouth every week methotrexate (RHEUMATREX) 2.5 MG chemo tablet Take 10 mg by mouth once a week 0 Active methylPREDNISolone 4 mg oral tablet (17 sources) Corticosteroid Sta rt: 4 take 1 tablet by mouth once Methylprednisolone (Medrol (Dain)) 4 mg tablets,dose pack Active 0 PO per package directions May 17, 2023 12:00am PO PER PKG DIR Start: 10-30-2021 methylPREDNISo lone (Medrol Dospak) 4 MG tablets TAKE 6 TABLETS ON DAY 1 DIRECTED ON PACKAGE AND DECREASE BY 1 TAB EACH DAY FOR A TOTAL OF 6 DAYS 10/30/2021 Active Start: 10-30-2021 End: 03-28-2022 take 1 tablet by mouth once Methylprednisolone (Medrol (Dain)) 4 mg tablets,dose pack Discontinued 0 PO per package directions October 29, 2021 11:00pm March 28, 2022 3:41pm PO PER PKG DIR multivitamin with minerals ( Centrum) 9-200 mg-mcg tablet split tablet (11 sources) multivitamin wit h minerals (Centrum) 9-200 mg-mcg tablet split tablet Every 24 hours. Active multivitamin wit h minerals (Centrum) 9-200 mg-mcg tablet split tablet Every 24 hours. 0 Active Wb-Bm-Iuzl-Fa-Ca Carb-Vit K (Women's Multivitamin) 18 mg iron-400 mcg-500 mg tablet (4 sources) Start: 03-17-2020 take 1 tablet by mouth once daily Jk-Fp-Knqh-Fa-Ca Carb-Vit K (Women's Multivitamin) 18 mg iron-400 mcg-500 mg tablet Active 1 TABLET PO DAILY March 17, 2020 12:00am give with meal/snack mycophenolate mofetil 500 mg oral tablet (20 sources) Start: 05-17-2023 take 1500 mg by mouth twice daily Mycophenolate Mofetil Active 1500 MG PO TWICE A DAY May 17, 2023 3:24pm Start: 03-17-2020 End: 05-17-2023 mycophenolate (Cellcept) 500 MG tablet 03/07/2022 Active Start: 01-18-2018 End: 03-12-2019 take 1500 mg by mouth twice daily Mycophenolate Mofetil Discontinued 1500 MG PO TWICE A DAY 180 30 March 07, 2018 1:51pm March 12, 2019 3:31pm take 3 tablets by mo ut once daily mycophenolate (CELLCEPT) 500 MG tablet Take 1,500 mg by mouth daily 0 Active Coulters-3 Fatty Acids (Fish Oil Concentrate) 1,000 mg capsule (4 sources) Start: 03-17-2020 take 1 capsule by mouth once daily Coulters-3 Fatty Acids (Fish Oil Concentrate) 1,000 mg capsule Active 1000 MG PO DAILY March 17, 2020 12:00am triamcinolone acetonide 1 mg/ml topical cream (15 sources) Corticosteroid Start: 10-30-2021 triamcinolone (Kenalog) 0.1 % cream USE ONE APPLICATION TOPICALLY TWICE A DAY NEEDED FOR CONTACT DERMATITIS 10/30/2021 Active Start: 10-30-2021 End: 03-28-2022 Triamcinolone Acetonide Disc ontinued 1 APPLIC TOPICAL TWICE A DAY 80 October 29, 2021 11:00pm March 28, 2022 3:42pm valACYclovir 500 mg oral tablet (11 sources) Herpesvirus Nucleoside Analog DNA Polymerase Inhibitor, Herpes Simplex Virus Nucleoside Analog DNA Polymerase Inhibitor, Herpes Zoster Virus Nucleoside Analog DNA Polymerase Inhibitor Start: 12-26-2021 valACYclovir (Valtr ex) 500 MG tablet TAKE 4 TABLETS AT THE START OF SYMPTOMS AND FOUR TABLETS 12 HOURS LATER 12/26/2021 Active 2 ml vitamin a 42300 unt/ml injection (11 sources) Vitamin A beta carotene (V itamin A) 15 MG/ML injection Every 24 hours. Active VITAMIN D, CHOLECALCIFEROL, PO (11 sources) VITAMIN D, CHOLECALCIFEROL, PO Take by mouth. Active VITAMIN D, EARL CALCIFEROL, PO Take by mouth. 0 Active Completed/Discontinued Medications Medication Drug Class(es) Dates Sig (Normalized) Sig (Original) azithromycin 250 mg oral tablet (4 sources) Macrolide Antimicrobial Start: 07-15-2018 End: 08-09-2018 Azithromycin Discontinued 0 PO .COMPLEX July 14, 2018 11:00pm August 09, 2018 6:44am take 500 mg today (day 1), then 250 mg for 4 days (days 2-5) PO biotin 1 mg oral capsule (15 sources) Start: 03-17-2020 End: 05-17-2023 take 1 mg by mouth once daily Biotin Discontinued 1 MG PO DAILY March 17, 2020 12:00am May 17, 2023 3:25pm biotin 1000 MCG tablet Every 24 hours. Active cephalexin 500 mg oral capsule (3 sources) Cephalosporin Antibacterial Start: 06-20-2022 End: 06-30-2022 take 500 mg by mouth every twelve hours Cephalexin Discontinued 500 MG PO Q12H 20 June 20, 2022 12:00am June 30, 2022 12:05am clindamycin 300 mg oral capsule (7 sources) Lincosamide Antibacterial Start: 01-10-2017 End: 01-20-2017 take 1 tablet by mouth four times daily CLINDAMYCIN HCL 300 MG CAPS One tablet by mouth four times daily CLINDAMYCIN HCL [id number] Jenny Doll TECHNICAL MARKETING CONSULTANT doxycycline hyclate 100 mg oral capsule (4 sources) Tetracycline-class Drug Start: 08-09-2018 End: 08-19-2018 take 100 mg by mouth twice daily Doxycycline Hyclate Discontinued 100 MG PO TWICE A DAY 20 August 08, 2018 11:00pm August 18, 2018 11:08pm nabumetone 750 mg oral tablet (10 sources) Nonsteroidal Anti-inflammatory Drug Start: 01-10-2017 End: 01-30-2017 NABUMETONE 750 MG TABS NABUMETONE [id number] Kiley Hernandez nitrofurantoin, macrocrystals 25 mg / nitrofurantoin, monohydrate 75 mg oral capsule (4 sources) Nitrofuran Antibacterial Start: 01-18-2018 End: 01-25-2018 take 1 capsule by mouth every twelve hours at mealtime Nitrofurantoin Monohyd/M-Cryst Discontinued 1 CAP PO Q12H 14 January 17, 2018 11:00pm January 24, 2018 11:09pm administer with a meal/food; swallow whole; do not open, crush, dissolve , or chew phenazopyridine hydrochloride 100 mg oral tablet (4 sources) Start: 01-18-2018 End: 01-19-2018 take 1 tablet by mouth three times daily at mealtime Phenazopyridine (Pyridium) 100 mg tablet Discontinued 100 MG PO THREE TIMES A DAY 7 0 January 17, 2018 11:00pm January 18, 2018 11:08pm administer with a full glass of water after each meal predniSONE 10 mg oral tablet (20 sources) Start: 10-05-2021 End: 07-18-2023 predniSONE (Deltasone) 10 MG tablet 4 TABLETS DAILY FOR 3 DAYS, THEN 3 DAILY FOR 3 DAYS, THEN 2 DAILY FOR 3 DAYS, THEN 1 FOR 3 DAYS 0 10/05/2021 07/18/2023 Discontinued (Therapy completed) Start: 03-26-2020 End: 03-21-2021 take 3 tablets by mouth once daily, then take 2 tablets by mouth once daily, then take 1 tablet by mouth once daily Prednisone Discontinued 20 MG PO DAILY March 26, 2020 12:00am March 21, 2021 3:06pm 3 tablets daily for 3 days, then 2 tablets daily for 3 days, then 1 tablet daily for 3 days Start: 07-15-2018 End: 03-12-2019 Prednisone Discontinued PO 9 0 30 July 14, 2018 11:00pm March 12, 2019 3:31pm Start: 01-18-2018 End: 07-15-2018 Prednisone Discontinued PO 6 0 30 January 17, 2018 11:00pm July 15, 2018 8:36am take 1 mg by mouth once daily pr edniSONE (DELTASONE) 20 MG tablet Take 1 mg by mouth daily 0 Active Problems Active Problems Problem Classification Problem Date Documented Date Episodic/Chronic Allergic reactions (10 sources) Allergy status to sulfonamides status; Translations: [Allergy status to penicillin] Onset: 02-21-2017 03-26-2020 Episodic Diabetes mellitus without complication (20 sources) Type 2 diabetes mellitus without complications; Translations: [Type 2 diabetes mellitus without complication] Onset: 01-30-2017 01-30-2017 Chronic Other circulatory disease (2 sources) Arteritis, unspecified; Translations: [Arteritis, unspecified] Onset: 01-05-2017 Chronic Other lower respiratory disease (20 sources) Interstitial lung disease; Translations: [Interstitial pulmonary disease, unspecified] Onset: 06-13-2021 Chronic Other lower respiratory disease (2 sources) Interstitial pulmonary disease, unspecified; Translations: [Interstitial pulmonary disease, unspecified (HCC)] Onset: 02-16-2022 Chronic Other lower respiratory disease (20 sources) Dyspnea on exertion; Translations: [Other forms of dyspnea] Onset: 04-19-2022 11-13-2022 Episodic Other nervous system disorders (2 sources) Other inflammatory and immune myopathies, not elsewhere classified; Translations: [Oth inflammatory and immune myopathies, NEC] Onset: 02-21-2017 Chronic Other nutritional; endocrine; and metabolic disorders (14 sources) Severe obesity; Translations: [Morbid (severe) obesity due to excess calories] Onset: 06-13-2021 06-13-2021 Chronic Other nutritional; endocrine; and metabolic disorders (4 sources) Obesity; Translations: [Obesity, unspecified] 04-03-2023 Chronic Other nutritional; endocrine; and metabolic disorders (4 sources) Obesity, unspecified; Translations: [Obesity, unspecified] Chronic Other upper respiratory infections (2 sources) Recurrent sinusitis; Translations: [Chronic sinusitis, unspecified] Onset: 04-08-2015 02-11-2025 Chronic Other upper respiratory infections (5 sources) Acute pharyngitis; Translations: [Acute pharyngitis, unspecified] Onset: 02-11-2025 06-20-2022 Episodic Residual codes; unclassified (4 sources) History of vaccination; Translations: [Personal history of other drug therapy] 03-21-2021 Episodic Spondylosis; intervertebral disc disorders; other back problems (5 sources) Other intervertebral disc displacement, lumbar region; Translations: [Displacement of lumbar intervertebral disc without myelopathy] Onset: 05-02-2023 02-11-2025 Chronic Systemic lupus erythematosus and connective tissue disorders (20 sources) Polymyositis associated with autoimmune disease; Translations: [...] Classification Problem Date Documented Da te Episodic/Chronic Acute and chronic tonsillitis (2 sources) Tonsillitis; Translations: [Acute recurrent tonsillitis, unspecified] Onset: 04-08-2015 02-11-2025 Episodic Inflammatory diseases of female pelvic organs (10 sources) Abscess of labia; Translations: [Abscess of vulva] Onset: 01-10-2017 Resolved: 01-30-2017 01-30-2017 Episodic Other acquired deformities (4 sources) Lumbar spondylolisthesis; Translations: [Spondylolisthesis, lumbar region] Onset: 11-14-2023 05-17-2023 Episodic Other acquired deformities (3 sources) Spondylolisthesis, lumbar region; Translations: [Acquired spondylolisthesis] Onset: 11-14-2023 05-17-2023 Episodic Other bone disease and musculoskeletal deformities (4 sources) Lesion of thoracic spine; Translations: [Disorder of bone, unspecified] Onset: 05-29-2023 05-18-2023 Episodic Other circulatory disease (2 sources) Personal history of transient ischemic attack (TIA), and cerebral infarction without residual deficits; Translations: [Prsnl hx of TIA (TIA), and cereb infrc w/o resid deficits] Onset: 02-21-2017 Episodic Other connective tissue disease (2 sources) Muscle weakness (generalized); Translations: [Muscle weakness (generalized)] Onset: 02-21-2017 Episodic Other connective tissue disease (15 sources) Interstitial myositis; 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, right thigh] Onset: 02-21-2017 02-21-2017 Episodic Other inflammatory condition of skin (2 sources) Erythema nodosum; Translations: [Erythema nodosum] Onset: 01-05-2017 Episodic Other lower respiratory disease (2 sources) Other forms of dyspnea; Translations: [Other forms of dyspnea] Onset: 04-19-2022 Episodic Other non-traumatic joint disorders (2 sources) Pain in unspecified joint; Translations: [Pain in unspecified joint] Onset: 01-05-2017 Episodic Other screening for suspected conditions (not mental disorders or infectious disease) (19 sources) Decreased diffusion capacity of lung; Translations: [Abnormal results of pulmonary function studies] Onset: 11-04-2021 11-13-2022 Episodic Spondylosis; intervertebral disc disorders; other back problems (9 sources) Lumbar radiculopathy; Translations: [Radiculopathy, lumbar region] Onset: 05-17-2023 05-17-2023 Episodic Sprains and strains (2 sources) Partial division, tendo calcaneus (Achilles tendon); Translations: [Strain of unspecified Achilles tendon, initial encounter] Onset: 12-12-2023 02-11-2025 Episodic Unclassified (4 sources) ankle scope 12-05-2021 Unclassified (4 sources) deep tissue biopsy 12-05-2021 Results Test Name Value Interpretation Reference Range Facility ALBUMIN, RANDOM URINE W/CREA TININEon 02-28-2025 ALBUMIN, URINE 0.4 mg/dL Normal See Note: [facility] Comment on above: Result Comment: Refe rence Range: Reference Range Not established Performed By: #### 1 0231, 6517, 7600, 496 #### [facility] [address], [address] [place] [address] Stock Mover: Alexis Blake MD ALBUMIN/CREATININE RATIO, RANDOM URINE 4 mg/g creat Normal <30 [facility] Comment on above: Result Comment: The ADA defines abnormalities in albumin excretion as follows: Albuminuria Category Result (mg/g creatinine) Normal to Mildly increased <30 Moderately increased 30-299 Severely increased > OR = 300 The ADA recommends that at least two of three specimens collected within a 3-6 month period be abnormal before considering a patient to be within a diagnostic category. Performed By: #### 1 0231, 6517, 7600, 496 #### [facility] [address], [address] [place] [address] Stock Mover: Alexis Blake MD Creatinine (U) [Mass/Vol] 99 mg/dL Normal 20-275 [facility] Comment on above: Performed By: #### 1 0231, 6517, 7600, 496 #### [facility] [address], [address] [place] [address] Stock Mover: Alexis Blake MD [facility] 02-28-2025 Albumin [Mass/Vol] 4.4 g/dL Normal 3.6-5.1 [facility] Comment on above: Performed By: #### 1 0231, 6517, 7600, 496 #### [facility] of [address], [address] [place] [address] Stock Mover: Alexis Blake MD Albumin/Globulin [Mass ratio] 1.7 {ratio} Normal 1.0-2.5 [facility] Comment on above: Performed By: #### 1 0231, 6517, 7600, 496 #### [facility] of [address], [address] [place] [address] Stock Mover: Alexis Blake MD ALP [Catalytic activity/Vol] 57 U/L Normal 31-125 [facility] Comment on above: Performed By: #### 1 0231, 6517, 7600, 496 #### [facility] of [address], [address] [place] [address] Stock Mover: Alexis Blake MD ALT [Catalytic activity/Vol] 29 U/L Normal 6-29 [facility] Comment on above: Performed By: #### 1 0231, 6517, 7600, 496 #### [facility] of [address], [address] [place] [address] Stock Mover: Alexis Blake MD AST [Catalytic activity/Vol] 22 U/L Normal 10-35 [facility] Comment on above: Performed By: #### 1 0231, 6517, 7600, 496 #### [facility] of [address], [address] [place] [address] Stock Mover: Alexis Blake MD Bilirubin [Mass/Vol] 0.5 mg/dL Normal 0.2-1.2 [facility] Comment on above: Performed By: #### 1 0231, 6517, 7600, 496 #### [facility] of [address], [address] [place] [address] Stock Mover: Alexis Blake MD BUN/CREATININE RATIO SEE NOTE: Normal 6-22 [facility] Comment on above: Result Comment: Not Reported: BUN and Creatinine are within reference range. Performed By: #### 1 0231, 65, 7600, 496 #### [facility] [address], [address] [place] [address] Stock Mover: Alexis Blake MD Calcium [Mass/Vol] 9.5 mg/dL Normal 8.6-10.2 [facility] Comment on above: Performed By: #### 1 0231, 65, 7600, 496 #### [facility] [place] [address] Stock Mover: Alexis Blake MD Chloride [Moles/Vol] 104 mmol/L Normal 98-110 [facility] Comment on above: Performed By: #### 1 0231, 65, 7600, 496 #### [facility] [place] [address] Stock Mover: Alexis Blake MD CO2 [Moles/Vol] 30 mmol/L Normal 20-32 [facility] Comment on above: Performed By: #### 1 0231, 65, 7600, 496 #### [facility] [place] [address] Stock Mover: Alexis Blake MD Creatinine [Mass/Vol] 0.68 mg/dL Normal 0.50-0.99 [facility] Comment on above: Performed By: #### 1 0231, 65, 7600, 496 #### [facility] of [place] [address] Stock Mover: Alexis Blake MD GFR/1.73 sq M.predicted among non-blacks MDRD (S/P/Bld) [Vol rate/Area] 107 mL/min/{1.73_m2} Normal > OR = 60 [facility] Comment on above: Performed By: #### 1 0231, 65, 7600, 496 #### [facility] [place] [address] Stock Mover: Alexis Blake MD Globulin (S) [Mass/Vol] 2.6 g/dL Normal 1.9-3.7 [facility] Comment on above: Performed By: #### 1 0231, 65, 7600, 496 #### [facility] [place] [address] Stock Mover: Alexis Blake MD Glucose [Mass/Vol] 140 mg/dL High 65-99 [facility] Comment on above: Result Comment: Fasting reference interval For someone without known diabetes, a glucose value >125 mg/dL indicates that they may have diabetes and this should be confirmed with a follow-up test. Performed By: #### 1 0231, 65, 7600, 496 #### [facility] [place] [address] Stock Mover: Alexis Blake MD Potassium [Moles/Vol] 4.5 mmol/L Normal 3.5-5.3 [facility] Comment on above: Performed By: #### 1 0231, 65, 7600, 496 #### [facility] [place] [address] Stock Mover: Alexis Blake MD Protein [Mass/Vol] 7.0 g/dL Normal 6.1-8.1 [facility] Comment on above: Performed By: #### 1 0231, 65, 7600, 496 #### [facility] [place] [address] Stock Mover: Alexis Blake MD Sodium [Moles/Vol] 142 mmol/L Normal 135-146 [facility] Comment on above: Performed By: #### 1 0231, 65, 7600, 496 #### [facility] [place] [address] Stock Mover: Alexis Blake MD Urea nitrogen [Mass/Vol] 20 mg/dL Normal 7-25 [facility] Comment on above: Performed By: #### 1 0231, 6517, 7600, 496 #### [facility] [address], [address] [place] [address] Stock Mover: Alexis Blake MD HEMOGLOBIN A1con 02-28-2025 HbA1c (Bld) [Mass fraction] 5.6 % Normal <5.7 [facility] Comment on above: Result Comment: For the purpose of screening for the presence of diabetes: <5.7% Consistent with the absence of diabetes 5.7-6.4% Consistent with increased risk for diabetes (prediabetes) > or =6.5% Consistent with diabetes This assay result is consistent with a decreased risk of diabetes. Currently, no consensus exists regarding use of hemoglobin A1c for diagnosis of diabetes in children. According to [place] Diabetes Association (ADA) guidelines, hemoglobin A1c <7.0% represents optimal control in non- diabetic patients. Different metrics may apply to specific patient populations. Standards of Medical Care in Diabetes(ADA). Performed By: #### 1 0231, 6517, 7600, 496 #### [facility] [address], [address] [place] [address] Stock Mover: Alexis Blake MD LIPID PANEL, STANDARDon 02-05 Cholesterol [Mass/Vol] 204 mg/dL High <200 [facility] Comment on above: Order Comment: FASTI NG:YES FASTING: YES Performed By: #### 1 0231, 6517, 7600, 496 #### [facility] [address], [address] [place] [address] Stock Mover: Alexis Blake MD Cholesterol in HDL [Mass/Vol] 49 mg/dL Low > OR = 50 [facility] Comment on above: Order Comment: FASTI NG:YES FASTING: YES Performed By: #### 1 0231, 6517, 7600, 496 #### [facility] [address], [address] [place] [address] Stock Mover: Alexis Blake MD Cholesterol in LDL [Mass/Vol] 123 mg/dL High [facility] Comment on above: Order Comment: FASTI NG:YES FASTING: YES Result Comment: Refe rence range: <100 Desirable range <100 mg/dL for primary prevention; <70 mg/dL for patients with CHD or diabetic patients with > or = 2 CHD risk factors. LDL-C is now calculated using the Deuce calculation, which is a validated novel method providing better accuracy than the Friedewald equation in the estimation of LDL-C. Binh SS et al. SILVERIO. 2013;310(19): 0660-9981 (http://education.[employer]/faq/CDG573) Performed By: #### 1 0231, 6517, 7600, 496 #### [facility] [address], [address] [place] [address] Stock Mover: Alexis Blake MD Cholesterol.total/ Cholesterol in HDL [Mass ratio] 4.2 {ratio} Normal <5.0 [facility] Comment on above: Order Comment: FASTI NG:YES FASTING: YES Performed By: #### 1 0231, 6517, 7600, 496 #### [facility] [address], [address] [place] [address] Stock Mover: Alexis Blake MD NON HDL CHOLESTEROL 155 mg/dL (calc) High <130 [facility] Comment on above: Order Comment: FASTI NG:YES FASTING: YES Result Comment: For patients with diabetes plus 1 major ASCVD risk factor, treating to a non-HDL-C goal of <100 mg/dL (LDL-C of <70 mg/dL) is considered a therapeutic option. Performed By: #### 1 0231, 6517, 7600, 496 #### [facility] [address], [address] [place] [address] Stock Mover: Alexis Blake MD Triglyceride [Mass/Vol] 204 mg/dL High <150 [facility] Comment on above: Order Comment: FASTI NG:YES FASTING: YES Result Comment: If a non-fasting specimen was collected, consider repeat triglyceride testing on a fasting specimen if clinically indicated. Avelina et al. J. of Clin. Lipidol. 2015;9:129-169. Performed By: #### 1 0231, 6517, 7600, 496 #### [facility] [address], [address] [place] [address] Stock Mover: Alexis Blake MD 37on 02-11-2025 37 YOUR APPOINTMENT TORustam OLIVEIRA WAS WITH THE [facility] LUNG NODULE CL[facility], COPD CLINIC, PULMONARY AND SLEEP MEDICINE OFFICE. PLEASE CALL OUR OFFICE AT [phone] for our [place] office location or [phone] for our [place] location, IF YOU HAVE NOT RECEIVED YOUR [...] to make improvements. COVID-19 VACCINATION INFORMATION: PH. [phone] [email or web address] [facility] Central Scheduling [phone] [facility] Sleep Scheduling [phone] Normal [facility] Office Visiton 02-11-2025 Follow-up visit [id number] Yazmin Lpoez 1975 F Date Provider Department Center 02/11/2025 YAKELIN LEE [facility] PULM None Family History Problem Relation Age of Onset Kidney disease Mother Cancer Mother Other Mother Hypertension Mother Diabetes Father Family Status - Relation Status Age at Mother Father Alive Level of Service:14024 LA OFFICE/OUTPATIENT ESTABLISHED MOD MDM 30 MIN Reason for Visit and Comments: Follow-up [220503] - ILD(INTERSTITUAL LUNG DISEASE) TRIPP(DYSPNEA ON EXERTIOON) Normal [facility] Progress Noteon 02-11-2025 Progress Note [facility] Pulmonary Medicine [address] [place] [address] Date of Service: 02/11/2025 Visit type: An Established patient Chief Complaint/Reason for Referral: Follow-up (ILD(INTERSTITUAL LUNG DISEASE)/TRIPP(DYSPNEA ON EXERTIOON)) SUBJECTIVE History of Present Illness: Yazmin Lopez ( 1975) is a 49 y.o. female patient, with significant PMH of arthritis, asthma, muscle weakness, ILD, polymyositis, being seen for pulmonary follow-up Seen in pulmonary office by Dr. Cornejo 01/23/2024 Patient presents today feeling well, complications no changes throughout the year. Seeing support manager, Dr Rodrigues on 01/07/2025, continues taking mycophenolate for polymyositis. Denies dyspnea unless climbing stairs or physical exertion. Denies recent illness, exacerbation, increased weakness, shortness of breath, chest tightness, wheezing, cough, palpitations, pedal edema. Never uses albuterol inhaler. PFT shows improving diffusion capacity , Treated lung volumes as well as function capacity are within normal limits CT of chest -last CT showed no significant change -No new suspicious pulmonary nodules or masses or new consolidation or effusion PFTs yearly Pneumonia vaccine: Seasonal Flu vaccine: COVID-19 vaccine: MMRC Dyspnea Scale: Grade Description of Breathlessness 0 [...] house or I am breathless when dressing. OBJECTIVE MEDICAL HISTORY: Medical History[1] SURGICAL HISTORY: Surgical History[2] ALLERGIES: Allergies[3] MEDICATIONS: Current Medications[4] SOCIAL HISTORY: Social History Tobacco Use Smoking status: Never Smokeless tobacco: Never Substance Use Topics Alcohol use: No FAMILY HISTORY: Family History[5] REVIEW OF SYSTEMS: Review of Systems Constitutional: Negative for activity change, appetite change, chills, fatigue and fever. HENT: Negative for congestion. Respiratory: Negative for cough, chest tightness, shortness of breath and wheezing. Cardiovascular: Negative for chest pain, palpitations and leg swelling. Musculoskeletal: Joint stiffness Neurological: Negative for weakness and headaches. VITAL SIGNS: BP 139/86 Pulse 88 Temp 36.9 ?C (98.4 ?F) (Temporal) Ht 5' 6.75" (1.695 m) Wt (!) 314 lb (142 kg) SpO2 96% BMI 49.55 kg/m? PHYSICAL EXAM: Physical Exam Constitutional: General: She is not in acute distress. Appearance: Normal appearance. She is not ill-appearing. HENT: Head: Normocephalic. Nose: No congestion. Eyes: General: Right eye: No discharge. Left eye: No discharge. Cardiovascular: Rate and Rhythm: Normal rate and regular rhythm. Pulses: Normal pulses. Heart sounds: Normal heart sounds. No murmur heard. Pulmonary: Effort: Pulmonary effort is normal. No respiratory distress. Breath sounds: Normal breath sounds. No wheezing, rhonchi or rales. Musculoskeletal: Right lower leg: No edema. Left lower leg: No edema. Skin: General: Skin is warm and dry. Coloration: Skin is not jaundiced or pale. Neurological: Mental Status: She is alert and oriented to person, place, and time. Psychiatric: Behavior: Behavior normal. DATA REVIEWED: PFT's--04/24/2024 CXR-- CT Chest 04/24/2024 Ordering Provider: CANCHOLA IFTEKHAR Reason For Exam: Diffuse/interstitial lung disease EXAM: CT Chest INDICATION: Diffuse interstitial lung disease COMPARISON: 04/19/2023 TECHNIQUE: CT of the chest was performed without intravenous contrast. Coronal and sagittal reformats were obtained. Dose reduction was employed with automated exposure control. FINDINGS: LUNG AND LARGE AIRWAYS: Central airways are patent. There are few scattered peripheral groundglass opacities, most pronounced in the posterior right upper lobe, unchanged from the prior exam. No pulmonary mass or suspicious pulmonary nodule. PLEURA: No significant coronary artery calcifications. VESSELS: Within normal limits. HEART: Normal size. No pericardial effusion. MEDIASTINUM AND RACHEL: No mediastinal or bulky hilar lymphadenopathy. CHEST WALL AND LOWER NECK: within normal limits. UPPER ABDOMEN: within normal limits. BONES: Multilevel degenerative changes of the imaged spine. IMPRESSION: Stable scattered bilateral peripheral groundglass opacities, unchanged from the prior exam. No pulmonary mass or suspicious pulmonary nodule. TTE-- ASSESSMENT and PLAN 1. Interstitial lung disease (HCC) (Primary) - PFTs 04/24/2024 normal spirometry, no significant response to (more content not included)... Normal [facility] ALBUMIN, RANDOM URINE W/CREA LEE 08-04-2024 ALBUMIN, URINE 1.2 mg/dL Normal See Note: [facility] Comment on above: Order Comment: FASTI NG:YES FASTING: YES Result Comment: Refe bahman Range: Reference Range Not established Performed By: #### 4 96, 6517, 73238 #### [facility] [address], [address] [place] [address] Stock Mover: Alexis Blake MD ALBUMIN/CREATININE RATIO, RANDOM URINE 10 mg/g creat Normal <30 [facility] Comment on above: Order Comment: FASTI NG:YES FASTING: YES Result Comment: The ADA defines abnormalities in albumin excretion as follows: Albuminuria Category Result (mg/g creatinine) Normal to Mildly increased <30 Moderately increased 30-299 Severely increased > OR = 300 The ADA recommends that at least two of three specimens collected within a 3-6 month period be abnormal before considering a patient to be within a diagnostic category. Performed By: #### 4 , 65, 50342 #### [facility] [address], [address] [place] [address] Stock Mover: Alexis Blake MD Creatinine (U) [Mass/Vol] 124 mg/dL Normal 20-275 [facility] Comment on above: Order Comment: FASTI NG:YES FASTING: YES Performed By: #### 4 , 65, 18951 #### [facility] [address], [address] [place] [address] Stock Mover: Alexis Blake MD COMPREHENSIVE METABOLIC PANE [facility] 08-04-2024 Albumin [Mass/Vol] 4.4 g/dL Normal 3.6-5.1 [facility] Comment on above: Performed By: #### 4 96, 65, 95133 #### [facility] [address], [address] [place] [address] Stock Mover: Alexis Blake MD Albumin/Globulin [Mass ratio] 1.6 {ratio} Normal 1.0-2.5 [facility] Comment on above: Performed By: #### 4 , 65, 61669 #### [facility] [address] [place] [address] Stock Mover: Alexis Blake MD ALP [Catalytic activity/Vol] 46 U/L Normal 31-125 [facility] Comment on above: Performed By: #### 4 96, 6517, 35590 #### [facility] of [address], [address] [place] [address] Stock Mover: Alexis Blake MD ALT [Catalytic activity/Vol] 27 U/L Normal 6-29 [facility] Comment on above: Performed By: #### 4 96, 65, 33051 #### [facility] of [address], [address] [place] [address] Stock Mover: Alexis Blake MD AST [Catalytic activity/Vol] 20 U/L Normal 10-35 [facility] Comment on above: Performed By: #### 4 , 65, 24494 #### [facility] of [address], [address] [place] [address] Stock Mover: Alexis Blake MD Bilirubin [Mass/Vol] 0.5 mg/dL Normal 0.2-1.2 [facility] Comment on above: Performed By: #### 4 96, 65, 37224 #### [facility] [place] [address] Stock Mover: Alexis Blake MD BUN/CREATININE RATIO SEE NOTE: Normal 6-22 [facility] Comment on above: Result Comment: Not Reported: BUN and Creatinine are within reference range. Performed By: #### 4 96, 65, 19180 #### [facility] [address], [address] [place] [address] Stock Mover: Alexis Blake MD Calcium [Mass/Vol] 9.7 mg/dL Normal 8.6-10.2 [facility] Comment on above: Performed By: #### 4 96, 65, 88403 #### [facility] of [address], [address] [place] [address] Stock Mover: Alexis Blake MD Chloride [Moles/Vol] 103 mmol/L Normal 98-110 [facility] Comment on above: Performed By: #### 4 , 65, 21943 #### [facility] [place] [address] Stock Mover: Alexis Blake MD CO2 [Moles/Vol] 29 mmol/L Normal 20-32 [facility] Comment on above: Performed By: #### 4 , 65, 26509 #### [facility] [place] [address] Stock Mover: Alexis Blake MD Creatinine [Mass/Vol] 0.66 mg/dL Normal 0.50-0.99 [facility] Comment on above: Performed By: #### 4 , 6516, 17132 #### [facility] [place] [address] Stock Mover: Alexis Blake MD GFR/1.73 sq M.predicted among non-blacks MDRD (S/P/Bld) [Vol rate/Area] 107 mL/min/{1.73_m2} Normal > OR = 60 [facility] Comment on above: Performed By: #### 4 , 65, 85815 #### [facility] [place] [address] Stock Mover: Alexis Blake MD Globulin (S) [Mass/Vol] 2.7 g/dL Normal 1.9-3.7 [facility] Comment on above: Performed By: #### 4 , 65, 22400 #### [facility] [place] [address] Stock Mover: Alexis Blake MD Glucose [Mass/Vol] 129 mg/dL High 65-99 [facility] Comment on above: Result Comment: Fasting reference interval For someone without known diabetes, a glucose value >125 mg/dL indicates that they may have diabetes and this should be confirmed with a follow-up test. Performed By: #### 4 , 65, 46234 #### [facility] [place] [address] Stock Mover: Alexis Blake MD Potassium [Moles/Vol] 5.0 mmol/L Normal 3.5-5.3 [facility] Comment on above: Performed By: #### 4 , 65, 03892 #### [facility] [address], [address] [place] [address] Stock Mover: Alexis Blake MD Protein [Mass/Vol] 7.1 g/dL Normal 6.1-8.1 [facility] Comment on above: Performed By: #### 4 , 65, 96216 #### [facility] [address], [address] [place] [address] Stock Mover: Alexis Blake MD Sodium [Moles/Vol] 140 mmol/L Normal 135-146 [facility] Comment on above: Performed By: #### 4 , 6516, 58463 #### [facility] [place] [address] Stock Mover: Alexis Blake MD Urea nitrogen [Mass/Vol] 16 mg/dL Normal 7-25 [facility] Comment on above: Performed By: #### 4 , 6516, 18558 #### [facility] [place] [address] Stock Mover: Alexis Blake MD HEMOGLOBIN A1con 08-04-2024 HEMOGLOBIN A1c 5.7 % of total Hgb High <5.7 [facility] Comment on above: Result Comment: For someone without known diabetes, a hemoglobin A1c value between 5.7% and 6.4% is consistent with prediabetes and should be confirmed with a follow-up test. For someone with known diabetes, a value <7% indicates that their diabetes is well controlled. A1c targets should be individualized based on duration of diabetes, age, comorbid conditions, and other considerations. This assay result is consistent with an increased risk of diabetes. Currently, no consensus exists regarding use of hemoglobin A1c for diagnosis of diabetes for children. Performed By: #### 4 , 65, 90030 #### [facility] [address], [address] [place] [address] Stock Mover: Alexis Blake MD 36on 05-06-2024 36 Called Pt and notifi ed Pt CT Chest results are Stable, No Significant Changes From Previous CT. Pt stated she is understanding of results and pleased with no change since last CT. Thank You Nella Freeman MA [facility] SCRN MAMM (CAD)W/ZOEY BILATo n 05-05-2024 SCRN MAMM (CAD)W/ZOEY BILAT [facility] Imaging Services [address] [place], [place] [address] SCRN MAMM (CAD)W/ZOEY BILAT MR#: [id number] Acct: [id number] Name: YAZMIN LOPEZ ANN Rep #: [id number] : 1975 F 49 From: Bhupinder Her MD PCP: Dr. Get Mejia MD Status: [facility] Study: SCRN MAMM (CAD)W/ZOEY BILAT Date of Exam: 04/08 Exam# [id number] Ordering Dr: Jenny Doll TECHNICAL MARKETING CONSULTANT TECHNICAL MARKETING CONSULTANT -C [id number] MAMMOGRAPHY - BILATERAL SCREENING 3-D TOMOSYNTHESIS REASON FOR EXAM: Female, 49 years old. Screening for breast cancer PERTINENT HISTORY: No significant family history. TECHNIQUE: 2-D mammograms and 3-D Tomosynthesis of the breast (s) were performed. CAD was performed. COMPARISON: 05/02/2023 FINDINGS: The breast composition is composed of scattered fibroglandular density. Scattered benign calcifications are seen. No dense spiculated masses or suspicious microcalcifications are identified. No architectural distortion is identified. There is no skin thickening or retraction. There has been no significant change since the prior study. BI/SCRN MAMM (CAD)W/ZOEY BILAT IMPRESSION: No mammographic signs of malignancy. Routine yearly mammograms recommended. ASSESSMENT CATEGORY: BIRADS Category 1: Negative. A letter regarding these results will be sent to the patient by the facility within 30 days. FOLLOW UP RECOMMENDATION: Yearly follow up mammogram recommended. (A) Approximately 10% of breast cancers are not detected by mammography. A normal mammogram should not delay biopsy of a clinically suspicious abnormality. Electronically Signed: Bhupinder Her MD at 20:39 EST , CC: MARCELINO Doll; Dr. Get Mejia MD Certified Ski Patroller: Signed Normal [facility] CT CHEST WO IV CONTRASTon CT CHEST WO IV CONTRAST Patient Name: YAZMIN LOPEZ : 1975 Exam Date/Time: 04/24/2024 15:08 Procedure: CT CHEST WO IV CONTRAST Ordering Provider: CANCHOLA IFTEKHAR Reason For Exam: Diffuse/interstitial lung disease EXAM: CT Chest INDICATION: Diffuse interstitial lung disease COMPARISON: 04/19/2023 TECHNIQUE: CT of the chest was performed without intravenous contrast. Coronal and sagittal reformats were obtained. Dose reduction was employed with automated exposure control. FINDINGS: LUNG AND LARGE AIRWAYS: Central airways are patent. There are few scattered peripheral groundglass opacities, most pronounced in the posterior right upper lobe, unchanged from the prior exam. No pulmonary mass or suspicious pulmonary nodule. PLEURA: No significant coronary artery calcifications. VESSELS: Within normal limits. HEART: Normal size. No pericardial effusion. MEDIASTINUM AND RACHEL: No mediastinal or bulky hilar lymphadenopathy. CHEST WALL AND LOWER NECK: within normal limits. UPPER ABDOMEN: within normal limits. BONES: Multilevel degenerative changes of the imaged spine. IMPRESSION: Stable scattered bilateral peripheral groundglass opacities, unchanged from the prior exam. No pulmonary mass or suspicious pulmonary nodule. Report Dictated on Electronically Signed By: Mikal Singleton MD Electronically Signed Date/Time: 04/29/2024 10:55 AM EST Follow up. Hx interstitial lung disease. Patient has no complaints Normal [facility] Business Employment Specialist Office Visit Reporton 04-08-2024 Business Employment Specialist Office Visit Report [address], [address] [place] [address] OFFICE VISIT Date of Service: 04/08/24 MR#: [id number] Acct: [id number] Name: YAZMIN LOPEZ ANN Rep #: [id number] : 1975 Provider: MARCELINO talbot Age/Sex: 49/F [place] [facility] [place]: Signed Intake Vital Signs 04/03/23 15:43 05/17/23 15:18 04/08/24 15:03 04/08/24 15:09 Height 5 ft 7 in 5 ft 7 in 5 ft 7 in 5 ft 7 in Weight: 324 lb 6 oz BMI 50.8 BP 134/82 H Intake 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) Chief Complaint: Annual 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 Required: No Is patient in pain?: No Allergies Penicillins Allergy (Verified 04/08/24 15:02) Unknown Sulfa (Sulfonamide Antibiotics) Allergy (Verified 04/08/24 15:02) Hives Medications ???Medication ???Instructions ???Recorded ???Confirmed ???Type albuterol sulfate 90 mcg/actuation 2 puff inhalation Q6H PRN 03/17/20 04/08/24 History aerosol inhaler (ProAir HFA) wsaowvnk-nti-pylr-FA-Ca carb-vit K 1 tab PO DAILY 03/17/20 04/08/24 History 18 mg iron-400 mcg-500 mg tablet (Women's Multivitamin) omega-3 fatty acids 1,000 mg 1,000 mg PO DAILY 03/17/20 04/08/24 History capsule (Fish Oil Concentrate) cholecalciferol (vitamin D3) 50 50 mcg PO DAILY 03/21/21 04/08/24 History mcg (2,000 unit) capsule hydrochlorothiazide 12.5 mg capsule 12.5 mg PO DAILY 04/03/23 04/08/24 History lisinopril 10 mg tablet 10 mg PO DAILY 04/03/23 04/08/24 History methylprednisolone 4 mg tablets in See Rx Instructions PO PER PKG DIR 05/17/23 04/08/24 Rx a dose pack (Medrol (Dain)) #21 tabs mycophenolate mofetil 500 mg tablet 1,500 mg PO BID 05/17/23 04/08/24 History gabapentin 300 mg capsule 300 mg PO TID Pain Management 06/06/23 04/08/24 History meloxicam 15 mg tablet 15 mg PO DAILY Pain Management 06/06/23 04/08/24 History tizanidine 4 mg tablet 4 mg PO TID Pain management 06/06/23 04/08/24 History metformin 500 mg tablet 500 mg PO QDAY 04/08/24 04/08/24 History Is last menstrual period known: No Post menopausal: Yes Patient : No : No PFSH Medical History COVID-19 vaccine series completed History of hypertension TIA (transient ischemic attack) Interstitial lung disease Arthritis Polymyositis Surgical History deep tissue biopsy H/O toe surgery History of ankle surgery ankle scope [place] teeth extracted History of carpal tunnel release of both wrists Family History Mother Renal cell carcinoma Social History Smoking Status: Never smoker alcohol intake: current details: occasionally substance use type: does not use caffeine: Yes what type of physical activity do you participate in: walking frequency: daily seatbelt use: always do you feel safe at home: Yes additional social history: Single History 0 Elective abortions Hx Para Spontaneous abortions Hx # Term Pregnancies Ectopic pregnancies Hx # Pregnancies Multiple births # of living children HPI Encounter for routine gynecological examination Details: YAZMIN LOPEZ is a 49 year old who presents for annual exam. Working with PCP on weight. Just restarted metformin as this helped before. Menses about every 6 weeks, not as heavy. Not sexually active Last PAP: 2019 History of abnormal PAP: no Last mammogram: 04/2023 History of abnormal mammogram: no Colon cancer screening: scheduled Jun 2024 Other preventative health care screenings: Rustam Mejia/Leticia. ROS Const Constitutional: Denies fatigue, weight gain or weight loss Cardio Card: Denies chest pain Resp Resp: Denies cough or dyspnea on exertion GI GI: Denies abdominal pain, bloating, change in stool character, constipation or vomiting : Reports as per HPI; Denies difficulty voiding, pelvic pain, urinary frequency, urinary incontinence, urinary urgency, vaginal discharge or vaginal pruritus Exam Const General: cooperative, healthy appearing, no acute distress and well developed Nutritional Appearance: obese Orientation: alert, oriented to person and oriented to place [facility] Head: normal to inspection Neck Neck: normal visual inspection Thyroid: thyroid normal Lymphatic: no lymphadenopathy noted Chest Breast inspection: normal inspection of the breasts and normal inspection of the axillae Breast palpation: normal palpation of the breasts, normal palpation of the axillae and no axillary lymphadenopathy Resp Effort Inspection: normal respiratory effort GI Palpation: soft, no masses and nontender Rectal Exam: deferred External Female Exam: normal external arnaldo (more content not included)... Normal [facility] CNCOon 09-24-2023 CNCO Letter Text Normal [facility] CNPNon 09-05-2023 CNPN Telephone (GSTNOR) -------- YAZMIN LOPEZ ([id number]) 1975 F Date Time Provider Department 09/05/23 SUSY LI During your visit today, we recorded the following information about you: Bridgette [place] 09/05/2023 3:07 PM Signed Personal History Colon polyps? No Colon cancer? No Crohn's Disease? No Ulcerative Colitis? No Family History Colon polyps? Yes Father Colon cancer? No Height: 5'7 Weight: 315 BMI: 49.3 Allergies As of Date: 09/05/2023 (Not on File) Date Reviewed: Never Reviewed Problem List As Of Date: 09/05/2023 (None) Encounter Status:Closed by BRIDGETTE THURSTON on 09/05/23 Normal [facility] Orthopedic Visit Reporton Orthopedic Visit Report [facility] [address] [place] [address] [place] [address] OFFICE VISIT Date of Service: 06/06/23 MR#: [id number] Acct: [id number] Name: YAZMIN LOPEZ Rep #: [id number] : 1975 Provider: Dr. David Jay MD Age/Sex: 48/F Location: [facility] Status: Signed Intake Vital Signs 05/17/23 15:18 Height 5 ft 7 in Weight: 321 lb BMI 50.3 Intake Visit Reasons: LUMBAR SPINE Chief Complaint: MRI review of lumbar spine Is patient in pain?: No Allergies Penicillins Allergy (Verified 06/06/23 14:55) Unknown Sulfa (Sulfonamide Antibiotics) Allergy (Verified 06/06/23 14:55) Hives Medications albuterol sulfate 90 mcg/actuation aerosol inhaler (ProAir HFA) 2 puff inhalation Q6H PRN 03/17/20 [History Confirmed 06/06/23] ooupobua-pyi-krht-FA-Ca carb-vit K 18 mg iron-400 mcg-500 mg tablet (Women's Multivitamin) 1 tab PO DAILY 03/17/20 [History Confirmed 06/06/23] omega-3 fatty acids 1,000 mg capsule (Fish Oil Concentrate) 1,000 mg PO DAILY 03/17/20 [History Confirmed 06/06/23] cholecalciferol (vitamin D3) 50 mcg (2,000 unit) capsule 50 mcg PO DAILY 03/21/21 [History Confirmed 06/06/23] hydrochlorothiazide 12.5 mg capsule 12.5 mg PO DAILY 04/03/23 [History Confirmed 06/06/23] lisinopril 10 mg tablet 10 mg PO DAILY 04/03/23 [History Confirmed 06/06/23] methylprednisolone 4 mg tablets in a dose pack (Medrol (Dain)) See Rx Instructions PO PER PKG DIR #21 tabs 05/17/23 [Rx Confirmed 06/06/23] mycophenolate mofetil 500 mg tablet 1,500 mg PO BID 05/17/23 [History Confirmed 06/06/23] gabapentin 300 mg capsule 300 mg PO TID Pain Management 06/06/23 [History Confirmed 06/06/23] meloxicam 15 mg tablet 15 mg PO DAILY Pain Management 06/06/23 [History Confirmed 06/06/23] tizanidine 4 mg tablet 4 mg PO TID Pain management 06/06/23 [History Confirmed 06/06/23] PFSH Medical History Arthritis COVID-19 vaccine series completed History of hypertension Interstitial lung disease Polymyositis TIA (transient ischemic attack) Surgical History ankle scope deep tissue biopsy H/O toe surgery History of ankle surgery History of carpal tunnel release of both wrists [place] teeth extracted Family History Mother Renal cell carcinoma Social History Smoking Status: Never smoker alcohol intake: current details: occasionally substance use type: does not use caffeine: Yes what type of physical activity do you participate in: walking frequency: daily seatbelt use: always do you feel safe at home: Yes additional social history: Single HPI LUMBAR SPINE Details: This documentation accurately reflects the service provided and the decisions made by me, Dr. David Jay MD 06/06/23 1785. Part of today???s visit was documented by Mireya Wilkes ATC, acting as scribe. YAZMIN LOPEZ is a 48 year old F here today for MRI review of lumbar spine. Patient states that right now she is not having any pain. She did have an epidural injection with Dr. Small last Sunday05/30/23, which he said it did not work the way he wanted it to. Dr. Small said he could not get the upward spread that he wanted, that it spread downward. She states that it did not kick in until Sunday. Patient states she is going back to see him next Sunday to follow-up and refill on medications. Dr. Small did put her on some pain medications, which she states they helped to take the edge off of her pain a little. Patient states sitting for a prolonged amount of time increases her pain, which radiate down into her right leg from the knee down. Yazmin is here for follow-up. She had 1 epidural injection last Sunday which seemed to give her relief only after few days. She continues to have low back pain radiating to right lower extremity but much improved after the injection. She underwent her MRI last Sunday and is due to see Dr. Small back for follow-up next week. Following is her previous history. 05/17/23: YAZMIN LOPEZ is a 48 year old F here today for lumbar spine. Patient notes that she has had pain for over a month. Patient denies any known injury but she lifted items around Meghan. Her pain is over her mid low back and she has tingling down her right leg, into her foot. She has numbness into her great and 2nd toe. She has been given a home exercise program from a physical therapist which hasnt been helpful. She denies any injections. She states that she is unable to drive due to her pain, prolonged sitting or walking. She has tried naproxen and tylenol which is not helpful. Patient denies any xrays or MRI. Yazmin feels weak in her right foot especially the toes and has difficult (more content not included)... Normal [facility] Spine Lumbar (Routine)on Spine Lumbar (Routine) [facility] Imaging Services [address] [place] [address] Spine Lumbar (Routine) MR#: [id number] Acct: [id number] Name: YAZMIN LOPEZ ANN Rep #: [id number] : 1975 F 48 From: Lula bryson MD PCP: Dr. Get Mejia MD Status: REG CL Study: Spine Lumbar (Routine) Date of Exam: 06/01/23 Exam# [id number] Ordering Dr: David Jay MD [id number] HISTORY: BACK PAIN INTO R LEG TECHNIQUE: Multiplanar and multisequence MR images of the lumbar spine were obtained without intravenous contrast. 147 images. COMPARISON: NM 05/25/2023, XR 05/17/2023. FINDINGS: VERTEBRAE: Vertebral body heights maintained. Degenerative bone marrow endplate changes of L4-5. Mild degenerative endplate changes of L3-4 and L5-S1. ALIGNMENT: No anterior or posterior subluxation. CONUS: Normal morphology and position of the conus medullaris at L1. INTERVERTEBRAL DISCS: T11-T12, T12-L1: No significant posterior disc protrusion, central canal stenosis, or foraminal narrowing based the sagittal images. L1-2: No significant posterior disc protrusion, central canal stenosis, or foraminal narrowing. L2-3: Minimal disc bulge with facet arthropathy resulting in minimal bilateral foraminal narrowing. No significant central canal stenosis. L3-4: Mild disc bulge with facet arthropathy superimposed on a developmentally narrow spinal canal resulting in mild central canal stenosis and bilateral foraminal narrowing. L4-5: 7 x 8 x 13 mm right paracentral disc extrusion with inferior migration into the right lateral recess with facet arthropathy resulting in severe central canal stenosis, right L5 nerve root impingement, and moderate bilateral foraminal narrowing with bilateral L4 nerve root abutment. L5-S1: Facet arthritis with trace effusions. No significant posterior disc protrusion, central canal stenosis, or foraminal narrowing. SOFT TISSUES: Mild posterior subcutaneous edema. MRI/Spine Lumbar (Routine) IMPRESSION: Right paracentral disc extrusion with inferior migration at L4-5 resulting in severe spinal canal stenosis, right nerve root impingement, and moderate bilateral foraminal narrowing with bilateral nerve root abutment. Mild disc bulge of L3-4 superimposed on a developmentally narrow spinal canal resulting in mild spinal canal stenosis and bilateral foraminal narrowing. Electronically Signed: Lula Cristobal MD at 9:09 EST Reading Location ID and State: [facility] / [place] Tel , Service support , CC: Dr. David Jay MD; Dr. Get Mejia MD Certified Ski Patroller: Signed [facility] Pulmonary function testOrder ed By: Nixon Delgado on 04-10-[address] [facility] [address] Chest w/o Contraston 08-06 CT Chest w/o Contrast Patient Name: YAZMIN LOPEZ Computed Tomography ACCESSION EXAM DATE/TIME PROCEDURE ORDERING PROVIDER [id number] 09/01/2021 13:[address] Thorax w/o Contrast JESIKA, RUTH CPT code 63394 Reason For Exam (CT Thorax w/o Contrast) Interstitial lung disease/ Hx of polymyossitis Report CT CHEST WITHOUT CONTRAST: CLINICAL INDICATION: Interstitial lung disease. TECHNIQUE: 1 mm axial images without IV contrast. Coronal and sagittal reconstructions were provided. COMPARISON: May 13, 2018. FINDINGS: Lungs: Multiple scattered bilateral subpleural groundglass opacities with a basilar predominance, are again present and similar to May 2018. Stable mild bibasilar traction bronchiectasis. No acute opacification or consolidation. No parenchymal or pleural-based nodule or mass is seen. Pleural fluid: None. Heart/Great vessels: Unremarkable. Mediastinum/Rachel/Axilla: No mass or lymphadenopathy is identified. Soft tissues chest wall: Unremarkable. Osseous structures: Multilevel degenerative change. Upper abdomen: No acute process identified. IMPRESSION: Multiple scattered bilateral subpleural groundglass opacities with a basilar predominance, are again present and similar to May 2018. Stable mild bibasilar traction bronchiectasis. No acute opacification or consolidation. Report Dictated on Final Dictating Physician: MD KELLEY JASON Signed Date and Time: 09/02/2021 10:38 am Signed by: MD KELLEY JASON Transcribed Date and Time: 09/02/2021 10:39 Normal [facility] HCG,Urine Qualon 02-21-2017 HCG.beta subunit ( test) Ql (U) Negative Normal Negative [facility] Comment on above: Result Comment: Preg avtar is the most common reason for HCG in urine, althoughchoriocarcinoma, hydatidiform mole, and certain nontropho-blastic malignancies also result in detectable urinary HCGlevels. Sensitivity = 20mIU/mL. Performed By: #### H CGUR ####[place] [address] Surgical Pathologyon 017 Surgical Pathology [id number] [facility] PATHOLOGY AND LABORATORY MEDICINE [address] [place], [place] [id number] FINAL SURGICAL PATHOLOGY REPORT NAME: YAZMIN LOPEZ .O.B.: 1975 41 Y F BILLING NO.: [id number]: PAC1O 1PAC [id number] PROCEDURE 02/21/2017 DATE:SURGEON: MEENU MCMANUS M.D. RECEIVED 02/21/2017 DATE:ATTENDING: MEENU MCMANUS M.D. REPORT DATE: 03/06/2017 COPIES TO: ___DIAGNOSIS:RIGHT DEEP THIGH MUSCLE, BIOPSY - INFLAMMATORY MYOPATHY AND CHANGESCONSISTENT WITH DENERVATION.COMMENT: See full report sent under separate cover for details.Study performed at [facility]. Reported by: ASHLIE Rios/BECKI MORRISSEY M.D. ____CLINICAL INFORMATION: Possible myositis, right thighSPECIMEN: MUSCLE BIOPSY , [facility] to [facility] ____GROSS DESCRIPTION:Specimen sent to [facility]. See full report underseparate cover for detail. MICHAEL/SSFDisclaimer: The following statement applies to allimmunohistochemistry, in situ hybridization, molecular studies, andimmunofluorescence testing.The use of one or more reagents in the above tests is regulated as ananalyte specific reagent (ASR). These tests were developed and theirperformance characteristics determined by the [facility]. They have not been cleared by the US Food and DrugAdministration (FDA). The FDA has determined that such clearance orapproval is not necessary.All the above immunostains were performed on paraffin embedded tissue.Appropriate positive and negative controls (where applicable) were runin parallel with the patient's specimen; these controls showed expectedstaining pattern, with acceptable intensity of staining.Immunohistochem ical assays have not been validated on decalcifiedtissues. Results should be interpreted with caution given the raisedpossibility of false negativity on decalcified specimens.Professional Performing Location: [facility] [address] [place] [address]. DEPARTMENT OF PATHOLOGY AND LABORATORY MEDICINE [place], [place] [address] Normal [facility] Comment on above: Performed By: #### S UR ####Performing Lab is in report Lab Report: PAP I-G HPV Hi R iskon 02-07-2017 HPV HC,[facility] RISK Negative Invalid Interpretation Code Negative [facility] Office Visiton 01-30-2017 Documentation of current medications (procedure) Done Invalid Interpretation Code [facility] Fall risk assessment No Invalid Interpretation Code [facility] Protein mass conc Done Invalid Interpretation Code [facility] Tobacco smoking status WAIS Never Invalid Interpretation Code [facility] Tobacco smoking status NHIS Never smoker Invalid Interpretation Code [facility] Tobacco use CPHS Never smoker Invalid Interpretation Code [facility] Microbiology: Culture, Genit al Comprehensiveon 01-16-2017 CUV Vancomycin $ 2 S [facility] GE use only - for LinkLogic import when terms are not otherwise specified Vancomycin $ 2 S Invalid Interpretation Code [facility] Microbiology: (P) Culture, G enital Comprehensiveon 01-15-2017 CUV . [facility] Office Visit: New annualon 0 01-10-2017 Documentation of current medications (procedure) Done Invalid Interpretation Code [facility] Fall risk assessment No [facility] Protein mass conc Done [facility] Tobacco smoking status NHIS Never [facility] Tobacco smoking status WAIS Never smoker [facility] Tobacco use CPHS Never smoker Invalid Interpretation Code [facility] ANCAon 01-09-2017 cANCA NOT DETECTED Normal Not-Detected [facility] Comment on above: Performed By: #### A NCA ####[facility] [place] [address] pANCA NOT DETECTED Normal Not-Detected [facility] Comment on above: Performed By: #### A NCA ####[address] [address] Angiotensin Converting Enzym irene 01-07-2017 RITCHIE (angiotensin converting enzyme) 37 U/L Normal 9-67 [facility] Comment on above: Result Comment: Perf ormed by [employer],[address] [place] [address],[place] [address] lqr.IPXI, Hank Penny MD - Lab. Director Performed By: #### A NCA ####[address] [address] Parvovirus B19 Abson 017 Parvovirus B19 Ab IgG 4.14 IV High <=0.89 [facility] Comment on above: Result Comment: INTE RPRETIVE INFORMATION: Parvovirus B19 Antibody, IgG0.89 IV or less .......... Negative - No significantlevel of detectable [id number] IgG antibody.0.90 - 1.10 IV ........... Equivocal - Repeat testing in10-14 days may be helpful.1.11 IV or greater ....... Positive - IgG antibody toParvovirus B19 detected whichmay indicate a current orpast infection.The best evidence for current infection is a significant change ontwo appropriately timed specimens, where both tests are done inthe same laboratory at the same time. Performed By: #### A NCA ####[address] [address] Parvovirus B19 Ab IgM 0.22 IV Normal <=0.89 [facility] Comment on above: Result Comment: INTE RPRETIVE INFORMATION: Parvovirus B19 Antibody, IgM0.89 IV or less .......... Negative - No significantlevel of detectable [id number] IgM antibody.0.90 - 1.10 IV ........... Equivocal - Repeat testing in10-14 days may be helpful.1.11 IV or greater ........ Positive - IgM antibody toParvovirus B19 detected whichmay indicate a current orrecent infection. However, lowlevels of IgM antibodies mayoccasionally persist for morethan 12 months post-infection.The best evidence for current infection is a significant change ontwo appropriately timed specimens, where both tests are done inthe same laboratory at the same time.Appearance of an IgM antibody response normally occurs 7 to 14days after the onset of disease. Testing immediately post-exposureis of no value without a later convalescent specimen. A residualIgM response may be distinguished from early IgM response toinfection by testing sera from patients three to four weeks laterfor changing levels of specific IgM antibodies.Performed by [employer],[address] [place] [id number] soq.IPXI, Hank Penny MD - Lab. Director Performed By: #### A NCA ####[address] [address] Vital Signs Date Time Vital Sign Value Performing Clinician Facility 02-11-2025 14:09-0400 Diastolic blood pressure 86 mm[Hg] Yakelin Phillips TECHNICAL MARKETING CONSULTANT Work Phone: [facility] 02-11-2025 14:09-0400 Systolic blood pressure 139 mm[Hg] Yakelin Phillips TECHNICAL MARKETING CONSULTANT Work Phone: [facility] 02-11-2025 14:04-0400 Body height 169.5 cm Yakelin Phillips TECHNICAL MARKETING CONSULTANT Work Phone: [facility] 02-11-2025 14:04-0400 Body mass index (BMI) [Ratio] 49.55 kg/m2 Yakelin Phillips NP Work Phone: [facility] [employer] 02-11-2025 14:04-0400 Body temperature 98.4 [degF] Yakelin Phillips NP Work Phone: [facility] [employer] 02-11-2025 14:04-0400 Body weight 142.43 kg Yakelin Phillips TECHNICAL MARKETING CONSULTANT Work Phone: [facility] 02-11-2025 14:04-0400 Heart rate 88 /min Yakelin Phillips NP Work Phone: [facility] [employer] 02-11-2025 14:04-0400 SaO2% (BldA) [Mass fraction] 96 % Yakelin Phillips NP Work Phone: [facility] 01-23-2024 14:20-0400 Body height 169.5 cm Ruth Canchola MD Work Phone: [facility] 01-23-2024 14:20-0400 Body mass index (BMI) [Ratio] 50.78 kg/m2 Ruth Canchola MD Work Phone: [facility] 01-23-2024 14:20-0400 Body temperature 97.11 [degF] Ruth Canchola MD Work Phone: [facility] 01-23-2024 14:20-0400 Body weight 145.97 kg Ruth Canchola MD Work Phone: [facility] 01-23-2024 14:20-0400 Diastolic blood pressure 87 mm[Hg] Ruth Canchola MD Work Phone: [facility] 01-23-2024 14:20-0400 Heart rate 92 /min Ruth Canchola MD Work Phone: [facility] 01-23-2024 14:20-0400 SaO2% (BldA) [Mass fraction] 95 % Ruth Canchola MD Work Phone: [facility] 01-23-2024 14:20-0400 Systolic blood pressure 132 mm[Hg] Ruth Canchola MD Work Phone: [facility] 07-18-2023 14:25-0400 Body height 169.5 cm Ruth Canchola MD Work Phone: [facility] 07-18-2023 14:25-0400 Body mass index (BMI) [Ratio] 48.82 kg/m2 Ruth Canchola MD Work Phone: [facility] 07-18-2023 14:25-0400 Body temperature 97.11 [degF] Ruth Canchola MD Work Phone: [facility] 07-18-2023 14:25-0400 Body weight 140.34 kg Ruth Canchola MD Work Phone: [facility] 07-18-2023 14:25-0400 Diastolic blood pressure 89 mm[Hg] Ruth Canchola MD Work Phone: [facility] 07-18-2023 14:25-0400 Heart rate 99 /min Ruth Canchola MD Work Phone: [facility] 07-18-2023 14:25-0400 SaO2% (BldA) [Mass fraction] 96 % Ruth Canchola MD Work Phone: [facility] 07-18-2023 14:25-0400 Systolic blood pressure 118 mm[Hg] Ruth Canchola MD Work Phone: [facility] 05-17-2023 15:18-0500 Body height 170.[address] [facility] 05-17-2023 15:18-0500 Body mass index (BMI) [Ratio] 50.3 kg/m2 [facility] 05-17-2023 15:18-0500 Body weight 145.[address] [facility] 04-03-2023 15:43-0500 Body height 170.[address] [facility] 04-03-2023 15:36-0500 Body mass index (BMI) [Ratio] 50.3 kg/m2 [facility] 04-03-2023 15:36-0500 Body weight 145.[address] [facility] 04-03-2023 15:36-0500 Diastolic blood pressure 82 mm[Hg] [facility] 04-03-2023 15:36-0500 Systolic blood pressure 126 mm[Hg] [facility] 11-13-2022 13:26-0400 Body height 169.5 cm Ruth Canchola MD Work Phone: [facility] 11-13-2022 13:26-0400 Body mass index (BMI) [Ratio] 48.89 kg/m2 Ruth Canchola MD Work Phone: [facility] 11-13-2022 13:26-0400 Body temperature 96.91 [degF] Ruth Canchola MD Work Phone: [facility] 11-13-2022 13:26-0400 Body weight 140.52 kg Ruth Canchola MD Work Phone: [facility] 11-13-2022 13:26-0400 Diastolic blood pressure 92 mm[Hg] Ruth Canchola MD Work Phone: [facility] 11-13-2022 13:26-0400 Heart rate 97 /min Ruth Canchola MD Work Phone: [facility] 11-13-2022 13:26-0400 SaO2% (BldA) [Mass fraction] 96 % Ruth Canchola MD Work Phone: [facility] 11-13-2022 13:26-0400 Systolic blood pressure 130 mm[Hg] Ruth Canchola MD Work Phone: [facility] 03-28-2022 15:44-0500 Body height 170.18 cm [facility] Work Phone: 03-28-2022 15:32-0500 Body mass index (BMI) [Ratio] 48.5 kg/m2 [facility] Work Phone: 03-28-2022 15:32-0500 Body weight 140.67 kg [facility] Work Phone: 03-28-2022 15:32-0500 Diastolic blood pressure 82 mm[Hg] [facility] Work Phone: 03-28-2022 15:32-0500 Systolic blood pressure 126 mm[Hg] [facility] Work Phone: 09-01-2021 12:17-0400 Heart rate 75 /min Ruth Canchola MD Work Phone: [facility] 09-01-2021 12:17-0400 Respiratory rate 18 /min Ruth Canchola MD Work Phone: [facility] 09-01-2021 12:17-0400 SaO2% (BldA) [Mass fraction] 99 % Ruth Canchola MD Work Phone: [facility] 11-07-2019 14:25-0400 BMI (Body Mass Index) 39.16 kg/m2 [place] 11-07-2019 14:25-0400 Body weight 113.4 kg [facility] [place] 11-07-2019 14:25-0400 Height 170.2 cm [place] 11-07-2019 14:25-0400 Pulse (Heart Rate) 83 /min [place] 11-07-2019 14:25-0400 Pulse Oximetry 99 % [place] 11-07-2019 14:25-0400 Respiratory Rate 18 /min [place], [place] 05-02-2019 09:41-0500 Body mass index (BMI) [Ratio] 36.02 kg/m2 Erickson Carpenter MD Work Phone: [facility] Work Phone: 05-02-2019 09:41-0500 Body weight 104.33 kg Erickson Carpenter MD Work Phone: [facility] Work Phone: 01-30-2017 15:36-0400 BMI (Body Mass Index) 33.86 kg/m2 Kiley Hernandez [facility] 01-30-2017 15:36-0400 Body Temperature 98.8 [degF] Kiley Hernandez [facility] 01-30-2017 15:36-0400 BP Diastolic 77 mm[Hg] Kiley Hernandez [facility] 01-30-2017 15:36-0400 BP Systolic 119 mm[Hg] Kiley Hernandez [facility] 01-30-2017 15:36-0400 Height 170.18 cm [facility] 01-30-2017 15:36-0400 Pulse (Heart Rate) 83 /min [facility] 01-30-2017 15:36-0400 Respiratory Rate 16 /min Kiley Hernandez [facility] 01-30-2017 15:36-0400 Weight 98.07 kg [facility] 01-10-2017 15:21-0400 BMI (Body Mass Index) 32.73 kg/m2 Jenny Doll NP [facility] 01-10-2017 15:21-0400 Body Temperature 97.8 [degF] Jenny Doll TECHNICAL MARKETING CONSULTANT [facility] 01-10-2017 15:21-0400 Body Temperature 97.81 [degF] Jenny Doll TECHNICAL MARKETING CONSULTANT [facility] 01-10-2017 15:21-0400 BP Diastolic 92 mm[Hg] Jenny Doll TECHNICAL MARKETING CONSULTANT [facility] 01-10-2017 15:21-0400 BP Systolic 145 mm[Hg] Jenny Doll TECHNICAL MARKETING CONSULTANT [facility] 01-10-2017 15:21-0400 Height 170.18 cm Jenny Doll TECHNICAL MARKETING CONSULTANT [facility] 01-10-2017 15:21-0400 Pulse (Heart Rate) 82 /min Jenny Doll TECHNICAL MARKETING CONSULTANT [facility] 01-10-2017 15:21-0400 Respiratory Rate 17 /min Jenny Doll TECHNICAL MARKETING CONSULTANT [facility] 01-10-2017 15:21-0400 Weight 94.8 kg Jenny Doll TECHNICAL MARKETING CONSULTANT [facility] Encounters Encounter Date Encounter Type Care Provider Facility Start: 02-11-2025 End: 02-12-2025 Office outpatient visit 25 minutes Yakelin Phillips NP Work Phone: [facility] Sleep Medicine [facility] Comment on above: Interstitial lung di sease (HCC) (Primary Dx); TRIPP (dyspnea on exertion); Polymyositis associated with autoimmune disease (HCC) Start: 02-11-2025 End: 02-12-2025 ambulatory YAKELIN PHILLIPS [facility] Start: 05-05-2024 End: 05-05-2024 ambulatory Get Jackie Facility:[facility] Start: 04-24-2024 End: 04-24-2024 Subsequent hospital visit by physician Ruth Canchola MD Work Phone: [facility] Pulm Function Test Comment on above: Interstitial lung di sease (HCC); TIRPP (dyspnea on exertion) Start: 04-24-2024 End: 04-24-2024 [facility] Start: 04-08-2024 End: 04-08-2024 ambulatory [facility] Start: 01-23-2024 End: 01-23-2024 Office outpatient visit 25 minutes Ruth Canchola MD Work Phone: [facility] Comment on above: Interstitial lung di sease (HCC) (Primary Dx); TRIPP (dyspnea on exertion); Polymyositis associated with autoimmune disease (HCC) Start: 09-05-2023 Telephone encounter Susy Li MD Work Phone: [facility] Start: 07-18-2023 End: 07-18-2023 Office outpatient visit 25 minutes Ruth Canchola MD Work Phone: [facility] Comment on above: TRIPP (dyspnea on exer tion) (Primary Dx); Interstitial lung disease (HCC); Polymyositis associated with autoimmune disease (HCC); Decreased diffusion capacity of lung Start: 06-06-2023 End: 06-06-2023 ambulatory Get Jackie Facility[facility] Start: 06-01-2023 End: 06-01-[address] [facility] Work Phone: Start: 06-01-2023 End: 06-01-[address] [facility] Work Phone: Start: 06-01-2023 End: 06-01-2023 ambulatory David Jay Facility:[facility] Start: 05-25-2023 End: 05-25-[address] [facility] Work Phone: Start: 05-25-2023 End: 05-25-2023 [facility] Work Phone: Start: 05-17-2023 End: 05-17-2023 Patient encounter procedure Jolie Lakhani [facility] Work Phone: Start: 05-02-2023 End: 05-02-[address] [facility] Work Phone: Start: 05-02-2023 End: 05-02-[address] [facility]Out[facility] Work Phone: Start: 04-19-2023 End: 04-19-2023 Subsequent hospital visit by physician Ruth Canchola MD Work Phone: [facility] Pulm Function Test Comment on above: TRIPP (dyspnea on exer tion); Interstitial lung disease (HCC); Decreased diffusion capacity of lung; Polymyositis associated with autoimmune disease (HCC) Start: 04-03-2023 End: 04-03-2023 Patient encounter procedure [facility] Work Phone: Start: 11-13-2022 End: 11-13-2022 Office outpatient visit 25 minutes Ruth Canchola MD Work Phone: [facility] Comment on above: TIRPP (dyspnea on exer tion) (Primary Dx); Interstitial lung disease (HCC); Decreased diffusion capacity of lung; Class 3 severe obesity due to excess calories with body mass index (BMI) of 45.0 to 49.9 in adult, unspecified whether serious comorbidity present (HCC); Polymyositis associated with autoimmune disease (HCC) Start: 04-27-2022 End: 12-22-2022 ambulatory [facility] Work Phone: Start: 04-27-2022 End: 04-27-2022 Patient encounter procedure [facility] Start: 03-28-2022 End: 03-28-2022 Patient encounter procedure [facility] Start: 02-19-2022 Transcribe Orders Ruth franks MD Work Phone: [facility] Central Scheduling Comment on above: Abnormal results of pulmonary function studies (Primary Dx); Interstitial pulmonary disease, unspecified (HCC) Start: 09-01-2021 End: 09-01-2021 Subsequent hospital visit by physician Ruth Canchola MD Work Phone: [facility] CT Scan Comment on above: Interstitial lung di sease (HCC); Polymyositis associated with autoimmune disease (HCC) Start: 05-04-2020 End: 05-04-2020 Patient encounter procedure External Provider [facility] Start: 05-04-2020 Results Only External Provider Exter [facility]al-[facility] Start: 03-24-2020 End: 03-24-2020 Patient encounter procedure External Provider [facility] Start: 03-24-2020 Results Only External Provider Exter nal-Non[facility] Start: 11-07-2019 End: 11-07-2019 Subsequent hospital visit by physician Erickson Carpenter Work Phone: [facility] Pulm Function Test Comment on above: Arrived Start: 05-02-2019 End: 05-02-2019 Subsequent hospital visit by physician Erickson Carpenter MD Work Phone: [facility] Pulm Function Test Comment on above: Arrived Start: 02-21-2017 [facility] Start: 01-05-2017 Ambulatory [facility] Procedures Date Procedure Procedure Detail Performing Clinician Start: 04-24-2024 Brncdilat rspse spmtry pre&post-brncdilat admn Ruth Canchola MD Work Phone: Start: 06-01-2023 MRI of lumbar spine [facility] Start: 05-25-2023 Radionuclide whole body bone study Jolie ORB Start: 05-17-2023 X-ray of lumbosacral spine Jolie ROB Start: 05-02-2023 End: 05-02-2023 Screening mammography Jolie ROB Start: 04-19-2023 Brncdilat rspse spmtry pre&post-brncdilat alejandra Canchola MD Work Phone: Start: 04-27-2022 End: 04-27-2022 Screening mammography Jolie Lakhani Start: 04-10-2022 Brncdilat rspse spmtry pre&post-brncdilat alejandra Canchola MD Work Phone: Start: 09-01-2021 Brncdilat rspse spmtry pre&post-brncdilat alejandra Canchola MD Work Phone: Start: 05-04-2020 EXTERNAL IMAGING External Provider Start: 03-24-2020 EXTERNAL LAB External Provider Start: 11-07-2019 Lung differential function Erickson Carpenter Work Phone: Start: 05-02-2019 SPIROMETRY WITH DIFFUSION CAPACITY Erickson Carpenter MD Work Phone: Start: 01-30-2017 Cervical smear biopsy taken Pap smear Jenny Doll NP Start: 01-30-2017 Gynecologic examination Routine gynecological examination Jenny Doll NP Start: 01-30-2017 End: 02-08-2017 Mammogram, screening Jenny Bina Lavon [employer] Work Phone: Start: 01-30-2017 Screening mammography Mammogram yearly screening Jenny Lavon RAZA Plan of Treatment Date Care Activity Detail Author Start: 2050 RSV Immunization for Adults (1 - 1-dose 75+ series) RSV Immunization for Adults (1 - 1-dose 75+ series) [facility] Start: 2035 RSV Immunization age d 60 or older (1 - 1-dose 60+ series) RSV Immunization aged 60 or older (1 - 1-dose 60+ series) [facility] Start: 02-11-2025 End: 02-11-2025 Patient encounter procedure 02/11/2025 2:40 PM EDT Office Visit [facility] [address] [place] [address] Stella Guerra APRN - ASSESSMENT NURSE [address] [place] [id number] [facility] Start: 01-05-2025 COVID-19 Vaccine ( season) COVID-19 Vaccine ( season) [facility] Start: 01-05-2025 Influenza vaccination Influenza Vacc ine (#1) [facility] Start: 12-09-2024 DTaP/Tdap/Td vaccine (2 - Td or Tdap) DTaP/Tdap/Td vaccine (2 - Td or Tdap) [facility] Start: 12-09-2024 DTaP/Tdap/Td Vaccine s (2 - Td or Tdap) DTaP/Tdap/Td Vaccines (2 - Td or Tdap) [facility] Start: 05-02-2024 Screening for malign ant neoplasm of breast Mammogram [facility] Start: 04-23-2024 End: 01-22-2025 Complete PFT pre and post bronchodilator Complete PFT pre and post bronchodilator PFT Routine Interstitial lung disease (HCC) TRIPP (dyspnea on exertion) Expected: 04/23/2024 (Approximate), Expires: 01/22/2025 [facility] Comment on above: Expected: 04/23/2024 (Approximate), Expires: 01/22/2025 Start: 04-23-2024 End: 01-22-2025 CT Chest WO contrast CT chest wo IV contrast Imaging Routine Interstitial lung disease (HCC) TRIPP (dyspnea on exertion) Expected: 04/23/2024, Expires: 01/22/2025 [facility] Comment on above: Expected: 04/23/2024 , Expires: 01/22/2025 Start: 01-23-2024 End: 01-23-2024 Patient encounter procedure 01/23/2024 2:20 PM EDT Office Visit [facility] [address] [place] [address] Ruth Canchola MD [address] [place] [id number] [facility] Start: 01-23-2024 End: 01-22-2025 Complete PFT pre and post bronchodilator Complete PFT pre and post bronchodilator PFT Routine Interstitial lung disease (HCC) TRIPP (dyspnea on exertion) Expected: 01/23/2024 (Approximate), Expires: 01/22/2025 [employer] Work Phone: Comment on above: Expected: 01/23/2024 (Approximate), Expires: 01/22/2025 Start: 01-06-2024 COVID-19 Vaccine () COVID-19 Vaccine ( season) [facility] Start: 01-06-2024 COVID-19 Vaccine () COVID-19 Vaccine () [facility] Start: 01-06-2024 Influenza vaccination Influenza Vacc ine (#1) [facility] Start: 05-17-2023 Patient referral [facility] Work Phone: Start: 04-27-2023 Screening for malign ant neoplasm of breast Mammogram [facility] Start: 04-19-2023 End: 11-14-2023 Complete PFT pre and post bronchodilator with FENO [facility] [employer] Work Phone: Comment on above: Expected: 04/19/2023 (Approximate), Expires: 11/14/2023 Start: 04-19-2023 End: 11-14-2023 CT Chest WO contrast [facility] Comment on above: Expected: 04/19/2023 , Expires: 11/14/2023 Once for 1 Occurrenc es starting 04/19/2023 until 04/19/2023 Start: 04-19-2023 End: 04-19-2023 Patient encounter procedure [facility] Imaging Start: 03-10-2023 Pneumococcal 0-64 ye ars Vaccine (3 - PPSV23 or PCV20) Pneumococcal 0-64 years Vaccine (3 - PPSV23 or PCV20) [facility] Start: 03-10-2023 Pneumococcal Vaccine : Pediatrics (0 to 5 Years) and At-Risk Patients (6 to 49 Years) (3 of 3 - PPSV23, PCV20 or PCV21) Pneumococcal Vaccine: Pediatrics (0 to 5 Years) and At-Risk Patients (6 to 49 Years) (3 of 3 - PPSV23, PCV20 or PCV21) [facility] Start: 03-10-2023 Pneumococcal Vaccine : Pediatrics (0 to 5 Years) and At-Risk Patients (6 to 64 Years) (3 - PPSV23 if available, else PCV20) Pneumococcal Vaccine: Pediatrics (0 to 5 Years) and At-Risk Patients (6 to 64 Years) (3 - PPSV23 if available, else PCV20) [facility] Start: 03-10-2023 Pneumococcal Vaccine : Pediatrics (0 to 5 Years) and At-Risk Patients (6 to 64 Years) (3 - PPSV23 or PCV20) Pneumococcal Vaccine: Pediatrics (0 to 5 Years) and At-Risk Patients (6 to 64 Years) (3 - PPSV23 or PCV20) [facility] Start: 03-10-2023 Pneumococcal Vaccine : Pediatrics (0 to 5 Years) and At-Risk Patients (6 to 64 Years) (3 of 3 - PPSV23 or PCV20) Pneumococcal Vaccine: Pediatrics (0 to 5 Years) and At-Risk Patients (6 to 64 Years) (3 of 3 - PPSV23 or PCV20) [facility] Start: 01-05-2023 COVID-19 Vaccine ( season) COVID-19 Vaccine ( season) [facility] Start: 01-05-2023 Influenza vaccination Influenza Vacc ine (#1) [facility] Start: 10-18-2022 End: 10-18-2022 Patient encounter procedure 10/18/2022 Office Visit Pulmonology Ruth Canchola MD [address] [place] [id number] [facility] [place] [facility] Start: 06-13-2022 Depression Screen Depression Screen [facility] Start: 11-04-2021 End: 11-04-2021 Patient encounter procedure 11/04/2021 Office Visit Pulmonology Ruth Canchola MD [address] [place] [id number] [facility] [place] [facility] Start: 06-17-2021 COVID-19 Vaccine (4 - Booster for Moderna series) COVID-19 Vaccine (4 - Booster for Moderna series) [facility] Start: 2020 Screening for malign ant neoplasm of colon [facility] Start: 01-06-2020 Influenza vaccination Flu vaccine (# 1) [place], [place] Start: 01-05-2019 Influenza vaccination Flu vaccine (# 1) [facility] Work Phone: Start: 01-30-2017 End: 01-30-2017 Appointment Appointment [facility] Start: 01-30-2017 End: 02-08-2017 Mammogram, screening Mammogram, Screening, both breasts [facility] Start: 01-30-2017 End: 01-30-2017 Mammogram, screening Mammogram, Screening, both breasts [facility] Start: 01-16-2017 End: 01-16-2017 Appointment Appointment [facility] Start: 01-11-2017 End: 01-12-2017 Bacteria identified Aer cx Nom (Genital specimen) *CUV - Culture, VAG/CX [facility] Start: 01-11-2017 End: 01-12-2017 Bacteria genital culture *CUV - Culture, VAG/CX [facility] Start: 01-10-2017 End: 01-10-2017 Appointment Appointment [facility] Start: 2015 Diabetes screen Diabetes screen [facility] Work Phone: Start: 2015 Lipid panel Lipid screen [place], [place] Start: 2015 Lipid screen Lipid screen [facility] Work Phone: Start: 2015 Screening for malign ant neoplasm of breast Mammogram [facility] Start: 2005 Screening for malign ant neoplasm of cervix [facility] Start: 1996 Cervical cancer screen Cervical canc er screen [facility] Work Phone: Start: 1996 Screening for malign ant neoplasm of cervix [facility] Start: 1994 DTaP/Tdap/Td Vaccine s (1 - Tdap) DTaP/Tdap/Td Vaccines (1 - Tdap) [facility] Start: 1994 Hepatitis B vaccine (1 of 3 - Risk 3-dose series) Hepatitis B vaccine (1 of 3 - Risk 3-dose series) [facility] Start: 1994 Hepatitis B Vaccines (1 of 3 - 19+ 3-dose series) Hepatitis B Vaccines (1 of 3 - 19+ 3-dose series) [facility] Start: 1994 Urine screening for protein Diabetes: Urine Protein Screening [facility] Start: 1994 Zoster Vaccines (1 o f 2) Zoster Vaccines (1 of 2) [facility] Start: 1993 Diabetes: Estimated Glomerular Filtration Rate for Kidney Health Diabetes: Estimated Glomerular Filtration Rate for Kidney Health [facility] Start: 1993 Diabetes: Urine Albumin-Creatinine Ratio for Kidney Health Diabetes: Urine Albumin-Creatinine Ratio for Kidney Health [facility] Start: 1993 Diabetic retinal exam Diabetic retin al exam [facility] Start: 1993 Hepatitis C screening Hepatitis C Sc reening [facility] Start: 1993 Urine screening for protein Diabetic microalbuminuria test [facility] Start: 1990 HIV screen HIV screen [facility] Work Phone: Start: [address] [facility] Start: 1987 Depression Screening Depression Scre ening [facility] Start: 1986 DTaP/Tdap/Td vaccine (6 - Tdap) DTaP/Tdap/Td vaccine (6 - Tdap) [facility] Work Phone: Start: 1985 Diabetic foot examination [facility] Start: 1985 Glaucoma screening Diabetes: R etinopathy Screening [facility] Start: 1985 Hemoglobin A1c measurement A1C test (Diabetic or Prediabetic) [facility] Start: 1985 Lipid panel Lipids [facility] Start: 1985 Preventive dental service Diabetes: Dental Exam [facility] Start: 1976 MMR Vaccines (1 of 1 - Standard series) MMR Vaccines (1 of 1 - Standard series) [facility] Start: 1975 Hemoglobin A1c measurement Diabetes: Hemoglobin A1C [facility] Start: 1975 Hepatitis B Vaccines (1 of 3 - 3-dose series) Hepatitis B Vaccines (1 of 3 - 3-dose series) [facility] Start: 1975 HIV screening HIV Screening [facility] Start: 1975 Lipid panel Lipid Panel [facility] Start: 1975 Screening for malign ant neoplasm of colon [facility] Complete PFT pre and post bronchodilator Complete PFT pre and post bronchodilator PFT Routine Interstitial lung disease (HCC) TRIPP (dyspnea on exertion) 04/24/2024 3:07 PM EST [facility] Work Phone: Complete PFT Study P re and Post Bronchodilator Complete PFT Study Pre and Post Bronchodilator PFT Routine 09/01/2021 12:17 PM EDT [facility] Work Phone: End: 09-01-2021 CT CHEST WO CONTRAST [facility] Work Phone: Comment on above: 1 Occurrences starti ng 09/01/2021 until 09/01/2021 End: 04-24-2024 CT Chest WO contrast [facility] Work Phone: Comment on above: Once for 1 Occurrenc es starting 04/24/2024 until 04/24/2024 Full PFT study Full PFT study P FT Routine 11/07/2019 1:38 PM EDT [facility] [place] MR Lumbar spine [facility] Patient referral [facility] Work Phone: Spirometry W/ Diffus ion Capacity Spirometry W/ Diffusion Capacity PFT Routine 05/02/2019 9:42 AM EST [facility] Work Phone: Immunizations Immunization Date Immunization Notes Care Provider Fa [facility] 02-16-2023 influenza virus vacc ine, unspecified formulation Ruth Canchola MD Work Phone: [facility] 02-26-2022 influenza virus vacc ine, unspecified formulation Ruth Canchola MD Work Phone: [facility] 03-17-2021 COVID-19, Moderna, Primary or Immunocompromised, PF, 100mcg/0.5mL Ruth Canchola MD Work Phone: [facility] Work Phone: 01-19-2021 influenza, injectabl e, quadrivalent, contains preservative Shamvinod Li MD Work Phone: [facility] 07-29-2020 COVID-19, Moderna, Primary or Immunocompromised, PF, 100mcg/0.5mL Ruth Canchola MD Work Phone: [facility] Work Phone: 07-01-2020 COVID-19, Moderna, Primary or Immunocompromised, PF, 100mcg/0.5mL Ruth Canchola MD Work Phone: [facility] 02-10-2020 influenza, injectabl e, quadrivalent, preservative free Susy Li MD Work Phone: [facility] 12-29-2019 pneumococcal conjuga te vaccine, 13 valent Susy Li MD Work Phone: [facility] 02-06-2019 influenza, injectabl e, quadrivalent, preservative free Susy Li MD Work Phone: [facility] 03-10-2018 influenza, seasonal, injectable Susy Li MD Work Phone: [facility] 03-10-2018 pneumococcal polysaccharide vaccine, 23 valent Susy Li MD Work Phone: [facility] 02-07-2018 Influenza, injectabl e, Madin Dimple Canine Kidney, preservative free, quadrivalent Susy Li MD Work Phone: [facility] 02-08-2017 influenza, injectabl e, quadrivalent, preservative free Susy Li MD Work Phone: [facility] 02-10-2016 influenza, injectabl e, quadrivalent, preservative free Susy Li MD Work Phone: [facility] 02-09-2015 influenza, injectabl e, quadrivalent, preservative free Susy Li MD Work Phone: [facility] 12-09-2014 tetanus toxoid, redu nichole diphtheria toxoid, and acellular pertussis vaccine, adsorbed Susy Li MD Work Phone: [facility] Payers Date Payer Category Payer Self-pay [id number] 2021 Commercial Man[employer] C are - HMO MMO [employer] [id number] 2021 Unknown 2016 Unknown [employer] [address] xxxxxxxxxxxx 2016-Present [phone] [address] [place] [address] xxxxxxxxxxxx [id number] 2016 Unknown [id number] Unknown [id number] Unknown [id number] Unknown [id number] Unknown [id number] Social History Date Type Detail Facility Start: 02-20-2017 End: 05-02-2019 Tobacco smoking status WAIS Never [facility] Work Phone: Start: 05-02-2019 End: 02-11-2025 Alcohol intake Current non-drinker of alcohol (finding) [employer] Phone: Start: 1975 Sex Assigned At Not on file [facility] [employer] Work Phone: Start: 02-20-2017 Tobacco use and exposure [facility]ok[facility]: Start: 03-28-2022 End: 05-17-2023 Tobacco smoking status NHIS Unknown if ever smoked [facility] Start: 1975 Sex Assigned At Female [facility] Start: 04-25-2022 End: 02-11-2025 History of Social function [facility] Start: 04-25-2022 End: 02-11-2025 Tobacco use panel [facility] Start: 02-23-2022 Gender identity Identifies as female gender (finding) [facility] Start: 04-04-2022 Sexual orientation Heterosexual (fin ding) [facility] Start: 04-09-2022 End: 11-13-2022 Exposure to SARS-CoV-2 (event) Not sure [facility] Start: 12-05-2021 Sex Female (finding) [facility] Clinical Notes 11-13-2022 to 02-11-2025 Yakelin Phillips NP - 02/11/2025 2:30 PM EDTPatient InstructionsRuth Canchola MD - 01/23/2024 2:20 PM EDTPatient InstructionsTelephone Encounter - rBidgette Thurston - 09/05/2023 3:06 PM EDT Note Date & Type Note Facility 02-11-2025 History of Presen t illness Narrative Images from the original note were not included. [facility] [address] [place] [address] Date of Service: 02/11/2025 Visit type: An Established patient Chief Complaint/Reason for Referral: Follow-up (ILD(INTERSTITUAL LUNG DISEASE)/TRIPP(DYSPNEA ON EXERTIOON)) SUBJECTIVE History of Present Illness: Yazmin Shari Lopez ( 1975) is a 49 y.o. female patient, with significant PMH of arthritis, asthma, muscle weakness, ILD, polymyositis, being seen for pulmonary follow-up Seen in pulmonary office by Dr. Cornejo 01/23/2024 Patient presents today feeling well, complications no changes throughout the year. Seeing support manager, Dr Rodrigues on 01/07/2025, continues taking mycophenolate for polymyositis. Denies dyspnea unless climbing stairs or physical exertion. Denies recent illness, exacerbation, increased weakness, shortness of breath, chest tightness, wheezing, cough, palpitations, pedal edema. Never uses albuterol inhaler. PFT shows improving diffusion capacity , Treated lung volumes as well as function capacity are within normal limits CT of chest -last CT showed no significant change -No new suspicious pulmonary nodules or masses or new consolidation or effusion PFTs yearly Pneumonia vaccine: Seasonal Flu vaccine: COVID-19 vaccine: MMRC Dyspnea Scale: Grade Description of Breathlessness 0 [...] house or I am breathless when dressing. OBJECTIVE MEDICAL HISTORY: Medical History[1] SURGICAL HISTORY: Surgical History[2] ALLERGIES: Allergies[3] MEDICATIONS: Current Medications[4] SOCIAL HISTORY: Social History Tobacco Use Smoking status: Never Smokeless tobacco: Never Substance Use Topics Alcohol use: No FAMILY HISTORY: Family History[5] REVIEW OF SYSTEMS: Review of Systems Constitutional: Negative for activity change, appetite change, chills, fatigue and fever. HENT: Negative for congestion. Respiratory: Negative for cough, chest tightness, shortness of breath and wheezing. Cardiovascular: Negative for chest pain, palpitations and leg swelling. Musculoskeletal: Joint stiffness Neurological: Negative for weakness and headaches. VITAL SIGNS: BP 139/86 Pulse 88 Temp 36.9 C (98.4 F) (Temporal) Ht 5' 6.75" (1.695 m) Wt (!) 314 lb (142 kg) SpO2 96% BMI 49.55 kg/m PHYSICAL EXAM: Physical Exam Constitutional: General: She is not in acute distress. Appearance: Normal appearance. She is not ill-appearing. HENT: Head: Normocephalic. Nose: No congestion. Eyes: General: Right eye: No discharge. Left eye: No discharge. Cardiovascular: Rate and Rhythm: Normal rate and regular rhythm. Pulses: Normal pulses. Heart sounds: Normal heart sounds. No murmur heard. Pulmonary: Effort: Pulmonary effort is normal. No respiratory distress. Breath sounds: Normal breath sounds. No wheezing, rhonchi or rales. Musculoskeletal: Right lower leg: No edema. Left lower leg: No edema. Skin: General: Skin is warm and dry. Coloration: Skin is not jaundiced or pale. Neurological: Mental Status: She is alert and oriented to person, place, and time. Psychiatric: Behavior: Behavior normal. DATA REVIEWED: PFT's--04/24/2024 CXR-- CT Chest 04/24/2024 Ordering Provider: CANCHOLA IFTEKHAR Reason For Exam: Diffuse/interstitial lung disease EXAM: CT Chest INDICATION: Diffuse interstitial lung disease COMPARISON: 04/19/2023 TECHNIQUE: CT of the chest was performed without intravenous contrast. Coronal and sagittal reformats were obtained. Dose reduction was employed with automated exposure control. FINDINGS: LUNG AND LARGE AIRWAYS: Central airways are patent. There are few scattered peripheral groundglass opacities, most pronounced in the posterior right upper lobe, unchanged from the prior exam. No pulmonary mass or suspicious pulmonary nodule. PLEURA: No significant coronary artery calcifications. VESSELS: Within normal limits. HEART: Normal size. No pericardial effusion. MEDIASTINUM AND RACHEL: No mediastinal or bulky hilar lymphadenopathy. CHEST WALL AND LOWER NECK: within normal limits. UPPER ABDOMEN: within normal limits. BONES: Multilevel degenerative changes of the imaged spine. IMPRESSION: Stable scattered bilateral peripheral groundglass opacities, unchanged from the prior exam. No pulmonary mass or suspicious pulmonary nodule. TTE-- ASSESSMENT and PLAN 1. Interstitial lung disease (HCC) (Primary) - PFTs 04/24/2024 normal spirometry, no significant response to BD. Borderline low corrected diffusing capacity. Normal lung volumes. Normal MVV - PFT within normal limits as noted above and conducted yearly CT chest 04/24/2024 stable scattered bilateral peripheral groundglass opacities, unchanged from the prior exam. No pulmonary mass or suspicious pulmonary nodule - CT chest conducted yearly 2. TRIPP (dyspnea on exertion) - clinical, uncomplicated - with physical exertion - not using albuterol as needed, no exacerbations 3. Polymyositis associated with autoimmune disease (HCC) - follows rheumatology, Dr Rodrigues - taking mycophenolate for polymyositis 4. Obesity - Weight loss would be beneficial, for lung function, inflammation and overall health. - healthy lifestyle, balanced diet FOLLOW UP: Follow up in about 1 year (around 02/11/2026), or if symptoms worsen or fail to improve. Portions of the information within this encounter were entered using an electronic dictation system. Best attempts were made to proofread the information prior to note completion. Despite the review of the information, some errors may remain. If there are questions related to the information contained within the note please contact the signing provider directly. Electronically signed by: Yakelin Phillips NP Pulmonary & Sleep Medicine [1] Past Medical History: Diagnosis Date Arthritis Asthma ([facility]/HCC) Hypertension 05/29 Interstitial lung disease ([facility]) Muscle weakness Myositis Stroke (cerebrum) ([facility]) TIA DT BCP TIA (transient ischemic attack) Type 2 diabetes mellitus without complication ([facility]) diet controlled [2] Past Surgical History: Procedure Laterality Date ANKLE ARTHROSCOPY (HISTORICAL) CARPAL TUNNEL RELEASE Bilateral 12/19/2016 jan 26 left side/right was 12/19 OTHER SURGICAL HISTORY Right thigh muscle biopsy WISDOM TOOTH EXTRACTION [3] Allergies Allergen Reactions Grass Extracts [Gramineae Pollens] Runny nose Sinus symptoms Pcn [Penicillins] Hives Pollen Extract Runny nose Sinus symptoms Sulfa Antibiotics Hives [4] Current Outpatient Medications: albuterol 108 (90 Base) MCG/ACT inhaler, Inhale 2 puffs every 6 hours as needed for wheezing., Disp: , Rfl: beta carotene (Vitamin A) 15 MG/ML injection, Every 24 hours., Disp: , Rfl: biotin 1000 MCG tablet, Every 24 hours., Disp: , Rfl: cyclobenzaprine (Flexeril) 5 MG tablet, Take 5 mg by mouth., Disp: , Rfl: fish oil-omega-3 fatty acids 1000 MG capsule, Take by mouth., Disp: , Rfl: fluticasone (Flonase) 50 MCG/ACT nasal spray, Administer 2 sprays into affected nostril(s) in the morning., Disp: , Rfl: gabapentin (Neurontin) 300 MG capsule, Take 300 mg by mouth., Disp: , Rfl: hydroCHLOROthiazide 12.5 MG tablet, Take 12.5 mg by mouth., Disp: , Rfl: levocetirizine (Xyzal) 5 MG tablet, Take by mouth., Disp: , Rfl: lisinopril 10 MG tablet, TAKE 1 TABLET BY MOUTH EVERY DAY FOR 30 DAYS, Disp: , Rfl: meloxicam (Mobic) 15 MG tablet, Take 15 mg by mouth., Disp: , Rfl: methylPREDNISolone (Medrol Dospak) 4 [...] capsule, Every 24 hours., Disp: , Rfl: triamcinolone (Kenalog) 0.1 % cream, USE ONE APPLICATION TOPICALLY TWICE A DAY NEEDED FOR CONTACT DERMATITIS, Disp: , Rfl: valACYclovir (Valtrex) 500 MG tablet, TAKE 4 TABLETS AT THE START OF SYMPTOMS AND FOUR TABLETS 12 HOURS LATER, Disp: , Rfl: valsartan-hydroCHLOROthiazide (Diovan-HCT) 160-12.5 MG tablet, Take 0.5 tablets by mouth in the morning., Disp: , Rfl: VITAMIN D, CHOLECALCIFEROL, PO, Take by mouth., Disp: , Rfl: [5] Family History Problem Relation Name Age of Onset Kidney disease Mother Cancer Mother Other ([id number]) Mother Hypertension Mother Doreen Lopez Diabetes Father Armando Lopez documented in this encounter [facility] 02-11-2025 Instructions Nella Freeman - 02/11/2025 2:30 PM EDT YOUR APPOINTMENT TODAY WAS WITH [facility], COPD CLINIC, PULMONARY AND SLEEP MEDICINE OFFICE. PLEASE CALL OUR OFFICE AT [phone] for our [place] office location or [phone] for our [place] location, IF YOU HAVE NOT RECEIVED YOUR [...] to make improvements. COVID-19 VACCINATION INFORMATION: PH. [phone] [email or web address] [facility] Central Scheduling [phone] [facility] Sleep Scheduling [phone] documented in this encounter [facility] 01-23-2024 History of Presen t illness Narrative Images from the original note were not included. [facility] [place]- Pulmonary and Sleep Medicine [address] [place] [address] PH: [phone] Visit type: An Established patient 01/23/2024 CHIEF COMPLAINT/REASON FOR REFERRAL: Chief Complaint Patient presents with Follow-up 6-MONTH APPT-DYSPNEA ON EXERTION INTERSTITIAL LUNG DISEASE History of Present Illness Yazmin Lopez is a 48 y.o. patient with a history of mild interstitial lung disease suspected secondary to underlying polymyositis She is being followed with CT chest as well as the PFT yearly Last CT chest did no significant change Scattered subpleural groundglass opacity similar to previous CAT scan No new suspicious pulmonary nodule or mass no new areas of consolidation or effusion PFT did show improving diffusion capacity Spirometry lung volumes as well as diffusion capacity are within normal limits Patient shortness of breath stable hardly has to use albuterol Recently she was in [place] she had this pain in the left foot 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 Denies shortness of breath PastMedical History Past Medical History: Diagnosis Date [...] 6 hours as needed for wheezing., Disp: , Rfl: beta carotene (Vitamin A) 15 MG/ML injection, Every 24 hours., Disp: , Rfl: biotin 1000 MCG tablet, Every 24 hours., Disp: , Rfl: cyclobenzaprine (Flexeril) 5 MG tablet, Take 5 mg by mouth., Disp: , Rfl: fish oil-omega-3 fatty acids 1000 MG capsule, Take by mouth., Disp: , Rfl: fluticasone (Flonase) 50 MCG/ACT nasal spray, Administer 2 sprays into affected nostril(s) in the morning., Disp: , Rfl: gabapentin (Neurontin) 300 MG capsule, Take 300 mg by mouth., Disp: , Rfl: hydroCHLOROthiazide 12.5 MG tablet, Take 12.5 mg by mouth., Disp: , Rfl: levocetirizine (Xyzal) 5 MG tablet, Take by mouth., Disp: , Rfl: lisinopril 10 MG tablet, TAKE 1 TABLET BY MOUTH EVERY DAY FOR 30 DAYS, Disp: , Rfl: meloxicam (Mobic) 15 MG tablet, Take 15 mg by mouth., Disp: , Rfl: methylPREDNISolone (Medrol Dospak) 4 [...] capsule, Every 24 hours., Disp: , Rfl: triamcinolone (Kenalog) 0.1 % cream, USE ONE APPLICATION TOPICALLY TWICE A DAY NEEDED FOR CONTACT DERMATITIS, Disp: , Rfl: valACYclovir (Valtrex) 500 MG tablet, TAKE 4 TABLETS AT THE START OF SYMPTOMS AND FOUR TABLETS 12 HOURS LATER, Disp: , Rfl: valsartan-hydroCHLOROthiazide (Diovan-HCT) 160-12.5 MG tablet, Take 0.5 tablets by mouth in the morning., Disp: , Rfl: VITAMIN D, CHOLECALCIFEROL, PO, Take by mouth., Disp: , Rfl: Social History Social History Tobacco Use Smoking status: Never Smokeless tobacco: Never Substance Use Topics Alcohol use: No FamilyHistory Family History Problem Relation Name Age of Onset Kidney disease Mother Cancer Mother Other ([id number]) Mother Review of Systems Review of Systems Constitutional: Negative. HENT: Negative. Eyes: Negative. Respiratory: Negative. Cardiovascular: Negative. Gastrointestinal: Negative. Endocrine: Negative. Genitourinary: Negative. Musculoskeletal: Negative. Skin: Negative. Allergic/Immunologic: Negative. Neurological: Negative. Hematological: Negative. Psychiatric/Behavioral: Negative. All other systems reviewed and are negative. Physical Exam Vitals: 01/23/24 1420 BP: 132/87 Pulse: 92 Temp: 36.2 C (97.1 F) TempSrc: Temporal SpO2: 95% Weight: (!) 321 lb 12.8 oz (146 kg) Height: 5' 6.75" (1.695 m) Physical Exam Vitals reviewed. Constitutional: General: She is not in acute distress. Appearance: She is obese. She is not ill-appearing. HENT: Head: Normocephalic and atraumatic. Nose: Nose normal. No congestion or rhinorrhea. Mouth/Throat: Pharynx: No oropharyngeal exudate or posterior oropharyngeal erythema. Eyes: Extraocular Movements: Extraocular movements intact. Pupils: Pupils are equal, round, and reactive to light. Cardiovascular: Rate and Rhythm: Normal rate and [...] is no abdominal tenderness. Musculoskeletal: General: No tenderness. Cervical back: Neck supple. No tenderness. Right lower leg: No edema. Left lower leg: No edema. Comments: Left foot with boots on Lymphadenopathy: Cervical: No cervical adenopathy. Skin: General: Skin is warm. Findings: No rash. Neurological: General: No focal deficit present. Mental Status: She is oriented to person, place, and time. Motor: No weakness. Psychiatric: Mood and Affect: Mood normal. Behavior: Behavior normal. Thought Content: Thought content normal. Data Reviewed and Summarized LABS and Studies: Available studies were personally reviewed. Salient findings summarized in HPI & A/P Imaging: Available studies were personally reviewed. Salient findings summarized in HPI & A/P PFT's: Pulmonary Functions Testing Results: FEV1 2.82L/ 91% DLCO 91% Assessment and Plan 1. Interstitial lung disease (HCC) Minimal ILD on CT chest no change from the previous year CAT scan She gets CT chest every year due for repeat 1 in April 2024 Order have been placed PFT within normal limits as noted above - Complete PFT pre and post bronchodilator; Future - CT chest wo IV contrast; Future - Complete PFT pre and post bronchodilator; Future 2. TRIPP (dyspnea on exertion) Much improved Not using albuterol as needed Lifetime non-smoker - Complete PFT pre and post bronchodilator; Future - CT chest wo IV contrast; Future - Complete PFT pre and post bronchodilator; Future 3. Polymyositis associated with autoimmune disease (HCC) History of polymyositis Being followed by rheumatology Medication reviewed Ruth Canchola MD Pulmonary, Critical Care, & Sleep Medicine Portions of the information within this encounter were entered using an electronic dictation system. Best attempts were made to edit/proofread the information prior to note completion. Despite the review of information, some errors may remain. If there are questions related to the information contained within the note please contact the provider documented in this encounter [facility] 01-23-2024 Instructions Nella Freeman - 01/23/2024 2:20 PM EDT YOUR APPOINTMENT TODAY WAS WITH [facility] L[facility]G [facility]ODULE CL[facility], COPD CLINIC, PULMONARY AND SLEEP MEDICINE OFFICE. PLEASE CALL OUR OFFICE AT [phone] for our [place] office location or [phone] for our [place] location, IF YOU HAVE NOT RECEIVED YOUR [...] to make improvements. COVID-19 VACCINATION INFORMATION: PH. [phone] HE[email or web address]/VACCINE [facility] Central Scheduling [phone] [facility] Sleep Scheduling [phone] documented in this encounter [facility] 09-05-2023 Telephone encount er Note Personal History Colon polyps? No Colon cancer? No Crohn's Disease? No Ulcerative Colitis? No Family History Colon polyps? Yes Father Colon cancer? No Height: 5'7 Weight: 315 BMI: 49.3 [facility] 09-05-2023 Miscellaneous Notes Formattin g of this note might be different from the original. Personal History Colon polyps? No Colon cancer? No Crohn's Disease? No Ulcerative Colitis? No Family History Colon polyps? Yes Father Colon cancer? No Height: 5'7 Weight: 315 BMI: 49.3 documented in this encounter [facility] 07-18-2023 History of Presen t illness Narrative Images from the original note were not included. [facility]- Pulmonary and Sleep Medicine [address] [place] [address] PH: [phone] Visit type: An Established patient 07/18/2023 CHIEF COMPLAINT/REASON FOR REFERRAL: Chief Complaint Patient presents with Follow-up INTERSTITIAL LUNG DISEASE CT-RESULTS History of Present Illness Yazmin Lopez is a 48 y.o. 1975 patient with a history of sinusitis associated with autoimmune disease dyspnea on exertion interstitial lung disease decreased diffusing capacity on PFT Underwent PFT as well as CT chest which was reviewed interpreted by me Patient doing well but short of breath when she walks fast or climbing stairs Hardly has to use albuterol inhaler Currently she is on mycophenolate She never smoked Denies any fever chills rigors abdominal pain blurred vision Had flu vaccine already MMRC Dyspnea Scale: Grade Description of Breathlessness 0 [...] Arthritis Asthma Muscle weakness Myositis Stroke (cerebrum) ([facility]) TIA DT BCP TIA (transient ischemic attack) Type 2 diabetes mellitus without complication (CMS/HCC) ([facility]) diet controlled Past Surgical History Past Surgical [...] for wheezing., Disp: 18 g, Rfl: 2 beta carotene (Vitamin A) 15 MG/ML injection, Every 24 hours., Disp: , Rfl: biotin 1000 MCG tablet, Every 24 hours., Disp: , Rfl: fish oil-omega-3 fatty acids 1000 MG capsule, Take by mouth., Disp: , Rfl: fluticasone (Flonase) 50 MCG/ACT nasal spray, Administer 2 sprays into affected nostril(s) in the morning., Disp: , Rfl: levocetirizine (Xyzal) 5 MG tablet, Take by mouth., Disp: , Rfl: lisinopril [...] capsule, Every 24 hours., Disp: , Rfl: predniSONE (Deltasone) 10 MG [...] TABLETS 12 HOURS LATER, Disp: , Rfl: valsartan-hydroCHLOROthiazide (Diovan-HCT) 160-12.5 MG tablet, Take 0.5 tablets by mouth in the morning., Disp: , Rfl: VITAMIN D, CHOLECALCIFEROL, PO, Take by mouth., Disp: , Rfl: Social History Social History Tobacco Use Smoking status: Never Smokeless tobacco: Never Substance Use Topics Alcohol use: No FamilyHistory Family History Problem Relation Name Age of Onset Kidney disease Mother Cancer Mother Other ([id number]) Mother Review of Systems Review of Systems Constitutional: Negative. HENT: Negative. Eyes: Negative. Respiratory: Negative. Cardiovascular: Negative. Gastrointestinal: Negative. Endocrine: Negative. Genitourinary: Negative. Musculoskeletal: Negative. Skin: Negative. Allergic/Immunologic: Negative. Neurological: Negative. Hematological: Negative. Psychiatric/Behavioral: Negative. All other systems reviewed and are negative. Physical Exam Vitals: 07/18/23 1425 BP: 118/89 Pulse: 99 Temp: 36.2 C (97.1 F) TempSrc: Temporal SpO2: 96% Weight: (!) 309 lb 6.4 oz (140 kg) Height: 5' 6.75" (1.695 m) Physical Exam Vitals reviewed. Constitutional: General: She is not in acute distress. Appearance: She is obese. She is not ill-appearing or diaphoretic. HENT: Head: Normocephalic. Right Ear: Tympanic membrane, [...] is no abdominal tenderness. Musculoskeletal: General: No tenderness. Cervical back: No rigidity or tenderness. Right lower leg: No edema. Left lower leg: No edema. Lymphadenopathy: Cervical: No cervical adenopathy. Skin: General: Skin is warm. Findings: No rash. Neurological: General: No focal deficit present. Mental Status: She is oriented to person, place, and time. Motor: No weakness. Psychiatric: Mood and Affect: Mood normal. Behavior: Behavior normal. Thought Content: Thought content normal. Data Reviewed and Summarized LABS and Studies: Available studies were personally reviewed. Salient findings summarized in HPI & A/P Imaging: Available studies were personally reviewed. Salient findings summarized in HPI & A/P PFT's: Pulmonary Functions Testing Results: FEV1 2.82L/ 91% DLCO 91% Assessment and Plan 1. TRIPP (dyspnea on exertion) At baseline Gets short winded on walking fast or climbing stairs Has albuterol however hardly uses it - albuterol 108 (90 Base) MCG/ACT inhaler; Inhale 2 puffs every 6 hours as needed for wheezing. 2. Interstitial lung disease (HCC) CT chest PFT with interpreted by me discussed with patient Mild groundglass opacity on CT chest No significant change from previous CT chest stable No new suspicious pulmonary nodules or masses PFT showed normal diffusing capacity as well as the lung volume 3. Polymyositis associated with autoimmune disease (HCC) Undergoing treatment as per rheumatology on CellCept 4. Decreased diffusion capacity of lung Latest PFT shows improvement in diffusing capacity which is normal now Ruth Canchola MD Pulmonary, Critical Care, & Sleep Medicine Portions of the information within this encounter were entered using an electronic dictation system. Best attempts were made to edit/proofread the information prior to note completion. Despite the review of information, some errors may remain. If there are questions related to the information contained within the note please contact the Answers submitted by the patient for this visit: Pulmonology Questionnaire (Submitted on 07/11/2023) Chief Complaint: Primary symptoms Chronicity: chronic When did you first notice your symptoms?: more than 1 year ago How often do your symptoms occur?: rarely Since you first noticed this problem, how has it changed?: resolved documented in this encounter [facility] 07-18-2023 Instructions Nella Freeman - 07/18/2023 2:40 PM EDT YOUR APPOINTMENT TODAY WAS WITH [facility] L[facility]ODULE CL[facility], COPD CLINIC, PULMONARY AND SLEEP MEDICINE OFFICE. PLEASE CALL OUR OFFICE AT [phone] for our [place] office location or [phone] for our [place] location, IF YOU HAVE NOT RECEIVED YOUR [...] to make improvements. COVID-19 VACCINATION INFORMATION: PH. [phone] HEALTH.[facility]G/CORONAVIRUS/VACCINE [facility] Central Scheduling [phone] [facility] Sleep Scheduling [phone] documented in this encounter [facility] 11-13-2022 History of Presen t illness Narrative Images from the original note were not included. [facility]- Pulmonary and Sleep Medicine [address] [place] [phone] PH: [phone] Visit type: An Established patient 11/13/2022 CHIEF COMPLAINT/REASON FOR REFERRAL: Chief Complaint Patient presents with Follow-up 6-MONTH APPT LUNG DISEASE History of Present Illness Yazmin Lopez is a 47 y.o. 1975 follow-up [...] For polymyositis being followed by rheumatology at [facility] MMR Dyspnea Scale: Grade Description [...] Onset Kidney disease Mother Cancer Mother Other ([id number]) Mother Review of Systems Review of Systems [...] lb 12.8 oz (141 kg) Height: 5' 6.75" (1.695 m) Physical Exam Vitals reviewed. Constitutional: [...] in adult, unspecified whether serious comorbidity present ([facility]) Advised to lose weight as much as [...] please contact the documented in this encounter [facility] 11-13-2022 Instructions Nella Freeman - 11/13/2022 1:40 PM EDT YOUR APPOINTMENT TODAY WAS WITH [facility], COPD CLINIC, PULMONARY AND SLEEP MEDICINE OFFICE. PLEASE CALL OUR OFFICE AT [phone] for our [place] office location or [phone] for our [place] location, IF YOU HAVE NOT RECEIVED YOUR [...] feedback to make improvements. COVID-19 VACCINATION INFORMATION: . 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) Polymyositis documented in this encounter [facility] Work Phone: Evaluation note* Diagnosis Onset Date Resolution Status Obesity acute Encounter for routine gynecological examination noneactive [facility] Work Phone: Evaluation note* Diagnosis TRIPP (dyspnea on exertion)- Primary Other dyspnea and respiratory abnormality Interstitial lung disease (HCC) Postinflammatory pulmonary fibrosis Decreased diffusion capacity of lung Idiopathic fibrosing alveolitis Class 3 severe obesity due to excess calories with body mass index (BMI) of 45.0 to 49.9 in adult, unspecified whether serious comorbidity present (HCC) Polymyositis associated with autoimmune disease (HCC) Polymyositis documented in this encounter [facility] HealthEvaluation note* Diagnosis TRIPP (dyspnea on exertion) Other dyspnea and respiratory abnormality Interstitial lung disease (HCC) Postinflammatory pulmonary fibrosis Decreased diffusion capacity of lung 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) Polymyositis documented in this encounter [facility] HealthEvaluation note* Diagnosis Onset Date Resolution Status Obesity acute Encounter for routine gynecological examination noneactive Lumbar radiculopathy acute Spondylolisthesis, lumbar region acute [facility] Work Phone: Evaluation note* Diagnosis TRIPP (dyspnea on exertion)- Primary Other dyspnea and respiratory abnormality Interstitial lung disease (HCC) 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) Polymyositis Decreased diffusion capacity of lung Idiopathic fibrosing alveolitis documented in this encounter [facility] HealthEvaluation note* Diagnosis Interstitial lung disease (HCC)- Primary Postinflammatory pulmonary fibrosis TRIPP (dyspnea on exertion) Other dyspnea and respiratory abnormality Polymyositis associated with autoimmune disease (HCC) Polymyositis documented in this encounter [facility] HealthEvaluation note* Diagnosis Abnormal results of pulmonary function studies- Primary Nonspecific abnormal results of pulmonary system function study Interstitial pulmonary disease, unspecified (HCC) documented in this encounter [facility] HealthEvaluation note* Diagnosis Interstitial lung disease (HCC) Postinflammatory pulmonary fibrosis TRIPP (dyspnea on exertion) Other dyspnea and respiratory abnormality documented in this encounter [facility] HealthEvaluation note* Diagnosis Interstitial lung disease (HCC)- Primary Postinflammatory pulmonary fibrosis TRIPP (dyspnea on exertion) Other dyspnea and respiratory abnormality Polymyositis associated with autoimmune disease (HCC) Polymyositis documented in this encounter [facility] for referral (narrative)* Consultation (Routine) - Authorized Specialty Diagnoses / Procedures Referred By Contac t Referred To Contact Pulmonology Diagnoses Interstitial lung disease (HCC) TRIPP (dyspnea on exertion) Procedures Complete PFT pre and post bronchodilator Ruth Canchola MD [address] [place] [id number] Referral ID Status Reason Start Date Expiration Date V isits Requested Visits Authorized [id number] Authorized 01/23/2024 01/17/2025 1 1 * Imaging (Routine) - Pending Review Specialty Diagnoses / Procedures Referred By Contac t Referred To Contact Radiology Diagnoses Interstitial lung disease (HCC) TRIPP (dyspnea on exertion) Procedures CT chest wo IV contrast Ruth Canchola MD [address] [place] [address] Referral ID Status Reason Start Date Expiration Date V isits Requested Visits Authorized [id number] Pending Review 01/23/2024 01/22/2025 1 1 * Consultation (Routine) - Authorized Specialty Diagnoses / Procedures Referred By Contac t Referred To Contact Pulmonology Diagnoses Interstitial lung disease (HCC) TRIPP (dyspnea on exertion) Procedures Complete PFT pre and post bronchodilator Ruth Canchola MD [address] [place] [phone] Referral ID Status Reason Start Date Expiration Date V isits Requested Visits Authorized [id number] Authorized 01/23/2024 01/17/2025 1 1 [facility] for visit Narrative* Consultation (Routine) - Closed Specialty Diagnoses / Procedures Referred By Contac t Referred To Contact Pulmonology Diagnoses Interstitial lung disease (HCC) TRIPP (dyspnea on exertion) Procedures Complete PFT pre and post bronchodilator Ruth Canchola MD [address] [place] [phone] Phone: tel: fax: Referral ID Status Reason Start Date Expiration Date Visits Re quested Visits Authorized [id number] Closed 01/23/2024 01/17/2025 1 [facility] ([facility]ine[facility] - Closed Specialty Diagnoses / Procedures Referred By Dannyac t Referred To Contact Radiology Diagnoses Interstitial lung disease (HCC) TRIPP (dyspnea on exertion) Procedures CT chest wo IV contrast Ruth Canchola MD [address] [place] [phone] Phone: tel: fax: Referral ID Status Reason Start Date Expiration Date Visits Re quested Visits Authorized [id number] Closed 04/01/2024 05/16/2024 1 1 [facility] Purpose Family History No Family History Records Found Relationship Condition Age at Onset Recorded Date/T chandan mother Renal cell carcinoma Unknown Advance Directives No Advanced Directives Records FoundDocuments on File Type Date Recorded Patient Ceo & Founder Expl anation Advance Directives and Living Will Power of Dub Room Engineer Latest Code Status on File Code Status Date Activated Date Inactivated Comments Full Code 02/21/2017 10:26 AM 02/21/2017 4:54 PM Documents on File Type Date Recorded Patient Ceo & Founder Expl anation ACP-Advance Directive ACP-Power of Dub Room Engineer Latest Code Status on File Code Status Date Activated Date Inactivated Comments Full Code 02/21/2017 10:26 AM 02/21/2017 4:54 PM Reason for Referral Specialty Diagnoses / Procedures Referred By aRchele t Referred To Contact Radiology Diagnoses Interstitial lung disease (HCC) Polymyositis associated with autoimmune disease (HCC) Procedures CT CHEST WO CONTRAST Ruth Canchola MD [address] [place] [address] Referral ID Status Reason Start Date Expiration Date Visits Re quested Visits Authorized [id number] Open 07/20/2021 09/03/2021 1 1 Specialty Diagnoses / Procedures Referred By Rachele t Referred To Contact Radiology Diagnoses TRIPP (dyspnea on exertion) Interstitial lung disease (HCC) Decreased diffusion capacity of lung Polymyositis associated with autoimmune disease (HCC) Procedures CT chest wo IV contrast Ruth Canchola MD [address] [place] [phone] Referral ID Status Reason Start Date Expiration Date V isits Requested Visits Authorized [id number] Pending Review 11/13/2022 05/12/2023 1 1 Specialty Diagnoses / Procedures Referred By Contac t Referred To Contact Pulmonology Diagnoses TRIPP (dyspnea on exertion) Interstitial lung disease (HCC) Decreased diffusion capacity of lung Polymyositis associated with autoimmune disease (HCC) Procedures Complete PFT pre and post bronchodilator with JIMYO Ruth Canchola MD [address] [place] [address] Referral ID Status Reason Start Date Expiration Date V isits Requested Visits Authorized [id number] Authorized 11/13/2022 05/12/2023 1 1 Referral ID Status Reason Start Date Expiration Date Visits Re quested Visits Authorized [id number] Closed 11/13/2022 05/12/2023 1 1 Referral ID Status Reason Start Date Expiration Date Visits Re quested Visits Authorized [id number] Closed 03/28/2023 05/12/2023 1 1 Chief Complaint and Reason for Visit Chief Complaint 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 Reason for Visit Obesity Encounter for routine gynecological examination Chief Complaint 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 LUMBAR SPINE room 2 LESION OF THORACIC VERTEBRA Reason for Visit Obesity Encounter for routine gynecological examination Lumbar radiculopathy Spondylolisthesis, lumbar region Chief Complaint 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 LUMBAR SPINE room 2 LESION OF THORACIC VERTEBRA Radiculopathy, lumbar region Reason for Visit Obesity Encounter for routine gynecological examination Lumbar radiculopathy Spondylolisthesis, lumbar region Additional Source Comments INFORMATION SOURCE (unrecogn ized section and content) DATE CREATED AUTHOR 10/30/2017 [facility] DATE CREATED AUTHOR AUTHOR'S ORGANIZ ATION 11/05/2021 [facility] DATE CREATED AUTHOR AUTHOR'S ORGANIZ ATION 09/26/2023 [facility] DATE CREATED AUTHOR AUTHOR'S ORGANIZ ATION 05/31/2024 [facility] DATE CREATED AUTHOR AUTHOR'S ORGANIZ ATION 02/14/2025 [facility] DATE CREATED AUTHOR AUTHOR'S ORGANIZ ATION 03/02/2025 [facility] Source Comments (unrecognize d section and content) In the event this informatio n is protected by the Federal Confidentiality of Alcohol and Drug Abuse Patient Records regulations: The Federal rules restrict any use of the information to criminally investigate or prosecute any alcohol or drug abuse patient.[facility] the event this information is protected by the Federal Confidentiality of Alcohol and Drug Abuse Patient Records regulations: The Federal rules restrict any use of the information to criminally investigate or prosecute any alcohol or drug abuse patient.[facility] the event this information is protected by the Federal Confidentiality of Alcohol and Drug Abuse Patient Records regulations: The Federal rules restrict any use of the information to criminally investigate or prosecute any alcohol or drug abuse patient.[facility] Care Teams (unrecognized sec tion and content) Bisque Ware Dipper Relationship Specialty Start Date End Date Lauro Lakhani DO PCP - General 02/10/17 Bisque Ware Dipper Relationship Specialty Start Date End Date Get Mejia MD [facility] [place] [address] PCP - General Family Medicine 04/19/22 Octavio Rodriuges DO [address] [facility] [place] [address] Consulting Physician Rheumatology 05/18/22 Bisque Ware Dipper Relationship Specialty Start Date End Date Get Mejia MD [address] [place] [address] PCP - General Family Medicine 04/19/22 Octavio Rodrigues DO [address] [facility] [place] [address] Consulting Physician Rheumatology 05/18/22 Bisque Ware Dipper Relationship Specialty Start Date End Date Get Mejia MD [address] [place] [phone] PCP - [facility] Medicine 04/19/22 Octavio Rodrigues DO [address] [facility] [place] [address] Consulting Physician Rheumatology 05/18/22 Team Status: Active Member Role Status Dates Dr. Jolie Lakhani DO Family Provider Active Dr. Get Mejia MD Primary Care Provider Active Team Status: Inactive Member Role Status Dates Jolie ROB Primary Care Provider, Referrin g Provider Active Jenny Doll TECHNICAL MARKETING CONSULTANT, TECHNICAL MARKETING CONSULTANT-C Attending Provider Active Team Status: Inactive Member Role Status Dates Jenny Doll TECHNICAL MARKETING CONSULTANT, TECHNICAL MARKETING CONSULTANT-C Attending Provider, Referring Provider Active Dr. Get Mejia MD Primary Care Provider Active Team Status: Inactive Member Role Status Dates Dr. Get Mejia MD Primary Care Provider, Referri ng Provider Active Dr. David Jay MD Attending Provider Active Team Status: Inactive Member Role Status Dates Dr. Get Mejia MD Primary Care Provider Active Dr. Saurabh Morales MD Attending Provider Active Team Status: Inactive Member Role Status Dates Dr. Get Mejia MD Primary Care Provider Active Dr. David Jay MD Attending Provider, Referring Pr ovider Active Bisque Ware Dipper Relationship Specialty Start Date End Date Get Mejia MD [address] [place] [address] PCP - General Family Medicine 04/19/22 Octavio Rodrigues DO [address] [facility] [place] [address] Consulting Physician Rheumatology 05/18/22 Bisque Ware Dipper Relationship Specialty Start Date End Date Rosmery Lund CNP [address] [place], [place] [address] PCP - General Family Medicine 09/05/23 Bisque Ware Dipper Relationship Specialty Start Date End Date Get Mejia MD [address] [place] [phone] PCP - General Family Medicine 04/19/22 Octavio Rodrigues DO [address] [place] [address] [place] [address] Consulting Physician Rheumatology 05/18/22 Bisque Ware Dipper Relationship Specialty Start Date End Date Get Mejia MD [address] [place] [address] PCP - General Family Medicine 04/19/22 Octavio Rodrigues DO [address] [facility] [place] [address] Consulting Physician Rheumatology 05/18/22 Bisque Ware Dipper Relationship Specialty Start Date End Date Get Mejia MD [address] [place] [address] PCP - General Family Medicine 04/19/22 Octavio Rodrigues DO [address] [facility] [place] [address] Consulting Physician Rheumatology 05/18/22 Bisque Ware Dipper Relationship Specialty Start Date End Date Get Mejia MD [address] [place] [address] PCP - General Family Medicine 04/19/22 Octavio Rodrigues DO [address] [facility] [place] [address] Consulting Physician Rheumatology 05/18/22 Bisque Ware Dipper Relationship Specialty Start Date End Date Get Mejia MD [address] [place] [phone] PCP - General Family Medicine 04/19/22 Octavio Rodrigues DO [address] [facility] [place] [address] Consulting Physician Rheumatology 05/18/22 Goals (unrecognized section and content) Goals may be documented in a n alternate sectionGoals may be documented in an alternate sectionGoals may be documented in an alternate sectionGoals may be documented in an alternate section Reason for Visit (unrecogniz ed section and content) Reason Comments Follow-up 6-MONTH APPTLUNG DIS EASE Specialty Diagnoses / Procedures Referred By Rachele solorzano Referred To Contact Pulmonology Diagnoses TRIPP (dyspnea on exertion) Interstitial lung disease (HCC) Decreased diffusion capacity of lung Polymyositis associated with autoimmune disease (HCC) Procedures Complete PFT pre and post bronchodilator with FENO Jesika, Iftekhar, MD [address] [place] [address] Referral ID Status Reason Start Date Expiration Date Visits Re quested Visits Authorized [id number] Closed 11/13/2022 05/12/2023 1 1 Specialty Diagnoses / Procedures Referred By Contac t Referred To Contact Radiology Diagnoses TRIPP (dyspnea on exertion) Interstitial lung disease (HCC) Decreased diffusion capacity of lung Polymyositis associated with autoimmune disease (HCC) Procedures CT chest wo IV contrast Ruth Canchola MD [address] [place] [address] Referral ID Status Reason Start Date Expiration Date Visits Re quested Visits Authorized [id number] Closed 03/28/2023 05/12/2023 1 1 Reason Comments Follow-up INTERSTITIAL LUNG DI SEASECT-RESULTS Reason Comments Follow-up 6-MONTH APPT-DYSPNEA ON EXERTIONINTERSTITIAL LUNG DISEASE Reason Comments Follow-up ILD(INTERSTITUAL MARGARITA G DISEASE)TRIPP(DYSPNEA ON EXERTIOON) FOR RECORDS PERTAINING TO PATIENTS WHO ARE [...] BE BASED ON THE PRIMARY CLINICAL RECORDS. [employer] provides no warranty or guarantee of the accuracy or completeness of information in this document.
--- NOTE | 2025-05-06 07:45 | BI_ITS ---
EXAM: SCRN MAMM (CAD)W/ZOEY BILAT DATE: 05/06/2025 CLINICAL HISTORY: F, Age 50 y/o , SCREENING FOR BREAST CANCER TECHNIQUE: Procedure Code: [id number] Modality: MG Procedure: SCRN MAMM (CAD)W/ZOEY BILAT COMPARISON: Prior exam(s) were compared FINDINGS: TISSUE DENSITY: There are scattered areas of fibroglandular density. Bilateral Breast Mammographic Findings: No significant masses, calcifications or other abnormalities are identified. BI/SCRN MAMM (CAD)W/ZOEY BILAT IMPRESSION: No mammographic evidence of malignancy. OVERALL FINAL ASSESSMENT BI-RADS 1: NEGATIVE. RECOMMENDATION: Routine annual follow-up in 1 Year Additional Recommendation none A letter with findings and recommendations will be mailed to the patient. Reading Location: [id number]
== END | disposition home or self-care (01) ==
PROVIDERS: PCP Family Medicine; Referring Provider Nurse Practitioner Women's Health; Visit Provider Nurse Practitioner Women's Health
DX: Z12.31 Encounter for screening mammogram for malignant neoplasm of breast (principal)
CPT/HCPCS: 77063; 77067